=== PATIENT | male | born 1945 | race Caucasian/White ===

== ENCOUNTER 2017-05-21 12:01 | Inpatient (IN) | payer MEDICARE, OTHER ==
[2017-05-21] MEDS ORDERED: Sodium Chloride 0.9% 2.5 ML Syringe FLUSH PRN (12:10)
[2017-05-21] MEDS ORDERED: Albuterol/Ipratropium 3.0-0.5 MG/3 ML Neb Soln NEB ONE (12:10)
[2017-05-21] MEDS ORDERED: Sodium Chloride 0.9% 10 ML Syringe FLUSH PRN (12:10)
[2017-05-21] MEDS ORDERED: methylPREDNISolone Sodium Succinate 125 MG/2 ML SDV IVPUSH ONE (12:10)
[2017-05-21] MEDS ORDERED: Sodium Chloride 0.9% 500 ML IV SCH (12:15)
--- NOTE | 2017-05-21 12:16 | EDM.PDOC ---
ED HPI GENERAL MEDICAL PROBLEM - General Chief Complaint: Respiratory Problem Stated Complaint: LOW OXYGEN Time Seen by Provider: 05/21/17 12:09 - History of Present Illness INITIAL COMMENTS - FREE TEXT/NARRATIVE: HISTORY AND PHYSICAL: History of present illness: Patient is a 71-year-old male follows with a physician in [facility] and presents with progressive shortness of breath over the last few weeks. Patient said that his provider was concerned he might have a pneumonia and he did go and get an outpatient chest x-ray earlier today. Patient presents to our ER saying that he is more short of breath and wanted evaluation. Patient denies any cardiac history but does have a long-standing history of COPD and he admits that he has been smoking over the last 2 or more weeks. Patient uses a nebulizer and inhaler at home and is on chronic oxygen and he has increased it a little over the last few weeks. He also has a history of right-sided lung cancer for which she underwent radiation therapy and he is in remission. He denies any resection of the lung on the right. Patient also has hypertension and hypercholesterolemia and has a pacemaker for sick sinus syndrome/ tachybradycardia syndrome. Patient tells me has oxygen saturation at home is normally 88% which is good for him. Patient says he has not been having a cough productive of phlegm and he has had no fevers chills chest pain abdominal pain nausea vomiting or diarrhea. When asked why his provider thought he had pneumonia the patient is unsure. He says he did not have any typical symptoms of pneumonia such as the cough and the fever. We were called to help the patient out of the car when he arrived and his O2 sat on room air was 60% and he felt short of breath. He is currently on a simple mask and satting 93% and is feeling better already. He is talking freely and easily without breathlessness and in fact he was talking on the cell phone intermittently. He denies any complaints of new leg pain or swelling and says he has no history of congestive heart failure. Review of systems: As per history of present illness and below otherwise all systems reviewed and negative. Past medical history: As per history of present illness and as reviewed below otherwise noncontributory. Surgical history: As per history of present illness and as reviewed below otherwise noncontributory. Social history: No reported history of drug or alcohol abuse. Family history: As per history of present illness and as reviewed below otherwise noncontributory. Physical exam: Gen.: Well-developed overweight man who is nontoxic and speaking clearly and easily in the ED without breathlessness. He moves easily in the ED. HEENT: Atraumatic, normocephalic, pupils reactive, negative for conjunctival pallor or scleral icterus, mucous membranes moist, throat clear, neck supple, nontender, trachea midline. Lungs: Diminished breath sounds throughout all chang with minimal auscultation of breath sounds and some scattered fine expiratory wheezing, there is some abdominal work of breathing but no intercostal muscle use or supraclavicular use , there is no stridor, breath sounds equal bilaterally, chest nontender. Heart: S1S2, regular rate and rhythm no overt murmurs Abdomen: Soft, nondistended, nontender. The abdomen is very large and there is some tympany on percussion in the upper part and bowel sounds are hypoactive. Negative for masses or hepatosplenomegaly. Negative for costovertebral tenderness. Pelvis: Stable nontender. Genitourinary: Deferred. Rectal: Deferred. Extremities: Atraumatic, negative for cords or calf pain. Neurovascular unremarkable. There is trace pedal edema bilaterally but no leg asymmetry and no calf tenderness Neuro: Awake, alert, oriented. Cranial nerves II through XII unremarkable. Cerebellum unremarkable. Motor and sensory unremarkable throughout. Exam nonfocal. Skin: There is no diaphoresis, turgor is normal, there are no rashes or lesions that look acute Diagnostics: EKG CBC CMP BNP lactic acid blood cultures if indicated troponin chest x-ray Therapeutics: IV O2 monitor IV fluids duo neb Solu-Medrol Zithromax 1313: Case was discussed with our hospitalist Dr. Troy who would like me to give a dose of Zithromax and agrees with inpatient admission. Patient also was aware of all testing results and agrees that he needs to be in the hospital as he is definitely more short of breath than his usual. Dr. Troy would not like blood cultures sent with the antibiotics. Impression: COPD exacerbation/bronchitis/mild hypoxia Definitive disposition and diagnosis as appropriate pending reevaluation and review of above. - Related Data Allergies Allergy/AdvReac Type Severity Reaction Status Date / Time ciprofloxacin [From Cipro] Allergy Rash Verified 05/21/17 12:08 ciprofloxacin HCl Allergy Rash Verified 05/21/17 12:08 [From Cipro] doxazosin Allergy Rash Verified 05/21/17 12:08 doxycycline Allergy Rash Verified 05/21/17 12:08 dutasteride [From Pepper] Allergy Rash Verified 05/21/17 12:08 Sulfa (Sulfonamide Allergy Rash Verified 05/21/17 12:08 Antibiotics) tamsulosin HCl [From Pepper] Allergy Rash Verified 05/21/17 12:08 Home Meds: Home Meds Folic Acid 3 mg PO DAILY 01/05/14 [History] Simvastatin [Zocor] 40 mg PO BEDTIME 01/05/14 [History] Aspirin [Adult Low Dose Aspirin EC] 81 mg PO DAILY 02/15/15 [History] Famotidine 20 mg PO DAILY 02/15/15 [History] Gabapentin [Neurontin] 600 mg PO TID 02/15/15 [History] Losartan [Cozaar] 100 mg PO DAILY 02/15/15 [History] metFORMIN HCl [Metformin HCl] 500 mg PO DAILY 02/15/15 [History] rOPINIRole [Requip] 1 mg PO DAILY 04/03/15 [History] rOPINIRole HCl [Requip] 2 tab PO BEDTIME 04/29/15 [History] Albuterol Sulfate [Proair Respiclick] 2 puff INH Q4HR PRN 02/01/16 [History] Albuterol [Proventil Neb Soln] 2.5 mg NEB Q6HR PRN 02/01/16 [History] Calcium Carbonate/Vitamin D3 [Calcium 600 + Vit D Tablet] 1 each PO DAILY [History] Hydroxychloroquine [Plaquenil] 200 mg PO BID 02/01/16 [History] Ketoconazole [Nizoral 2% Crm] 1 applic TOP DAILY 02/01/16 [History] Metoprolol Succinate [Toprol XL 100mg] 100 mg PO DAILY 02/01/16 [History] Mometasone/Formoterol [Dulera 200-5 MCG] 2 puff INH BID 02/01/16 [History] Multivitamin [Multivitamins] 1 cap PO DAILY 02/01/16 [History] Roflumilast [Daliresp] 500 mcg PO DAILY 02/01/16 [History] Tiotropium [place] [Spiriva Respimat] 2.5 mcg IH DAILY 02/01/16 [History] metroNIDAZOLE/Skin Cleansr #23 [[place] 0.75% Cream] 1 applic TOP BID 02/01/16 [ History] rOPINIRole [Requip] 1 mg PO PCLUNCH PRN 02/01/16 [History] Amoxicillin/Clavulanate K [Augmentin 875 MG/125 MG] 1 tab PO Q12HR #10 tablet [Rx] Past Medical History HEENT History: Reports: Hard of Hearing Cardiovascular History: Reports: High Cholesterol, Pacemaker, SOB on Exertion Respiratory History: Reports: COPD, SOB, Other (See Below) Other Respiratory History: lung ca Gastrointestinal History: Reports: None Genitourinary History: Reports: None, Other (See Below) Other Genitourinary History: BPH Musculoskeletal History: Reports: RA Other Musculoskeletal History: restless legs syndrome and RA Neurological History: Reports: None Psychiatric History: Reports: None Endocrine/Metabolic History: Reports: Diabetes, Type II Hematologic History: Reports: None Oncologic (Cancer) History: Reports: Lung - Infectious Disease History Infectious Disease History: Reports: None - Past Surgical History HEENT Surgical History: Reports: None Cardiovascular Surgical History: Reports: Pacer Social & Family History - Family History Family Medical History: Noncontributory - Tobacco Use Smoking Status *Q: Former Smoker Years of Tobacco use: 54 Used Tobacco, but Quit: Yes Month Tobacco Last Used: 7 years Second Hand Smoke Exposure: No - Alcohol Use Days Per Week of Alcohol Use: 3 Number of Drinks Per Day: 2 Total Drinks Per Week: 6 - Recreational Drug Use Recreational Drug Use: No ED ROS GENERAL - Review of Systems Review Of Systems: ROS reveals no pertinent complaints other than HPI. ED EXAM, GENERAL - Physical Exam Exam: See Below (See dictation) Course - Vital Signs Last Recorded V/S: Last Vital Signs Temp 36.3 C 05/21/17 12:03 Pulse 102 H 05/21/17 12:03 Resp 20 05/21/17 12:03 BP 192/89 H 05/21/17 12:03 Pulse Ox 90 L 05/21/17 12:03 - Orders/Labs/Meds Orders: Active Orders 24 hr Category Date Time Status Patient Status [ADT] Stat ADT 05/21/17 13:19 Ordered Cardiac Monitoring [RC] . DIRECTED Care 05/21/17 12:09 Active EKG Documentation Completion [RC] STAT Care 05/21/17 12:09 Active Oxygen Therapy, ED [RC] ASDIRECTED Care 05/21/17 12:09 Active Pulse Oximetry [RC] ASDIRECTED Care 05/21/17 12:09 Active RT Aerosol Therapy [RC] ASDIRECTED Care 05/21/17 12:11 Active UA W/MICROSCOPIC [URIN] Stat Lab 05/21/17 13:00 Results Azithromycin [Zithromax] 500 mg Med 05/21/17 13:20 Ordered Sodium Chloride 0.9% [Normal Saline] 250 ml IV ONETIME Sodium Chloride 0.9% [Normal Saline] 500 ml Med 05/21/17 12:15 Active IV STAT Sodium Chloride 0.9% [Saline Flush] Med 05/21/17 12:10 Active 10 ml FLUSH ASDIRECTED PRN Sodium Chloride 0.9% [Saline Flush] Med 05/21/17 12:10 Active 2.5 ml FLUSH ASDIRECTED PRN Saline Lock Insert [OM.PC] Stat Oth 05/21/17 12:09 Ordered Medication Orders Sodium Chloride (Normal Saline) 500 mls @ 999 mls/hr IV STAT [facility] Last Admin: 05/21/17 12:30 Dose: 999 mls/hr Sodium Chloride (Saline Flush) 10 ml FLUSH ASDIRECTED PRN PRN Reason: Keep Vein Open Last Admin: 05/21/17 12:31 Dose: 10 ml Sodium Chloride (Saline Flush) 2.5 ml FLUSH ASDIRECTED PRN PRN Reason: Keep Vein Open Last Admin: 05/21/17 12:31 Dose: 2.5 ml Labs: Laboratory Tests 05/21/17 05/21/17 05/21/17 Range/Units 12:20 12:20 12:20 WBC 7.94 (4.0-11.0) K/uL RBC 4.59 (4.50-5.90) M/uL Hgb 13.4 (13.0-17.0) g/dL Hct 42.8 (38.0-50.0) % MCV 93.2 (80.0-98.0) fL MCH 29.2 (27.0-32.0) pg MCHC 31.3 (31.0-37.0) g/dL RDW Std Deviation 54.2 (28.0-62.0) fl RDW Coeff of Kelse[place] 16 H (11.0-15.0) % Plt Count 276 (150-400) K/uL MPV 8.90 (7.40-12.00) fL Neut % (Auto) 69.7 (48.0-80.0) % Lymph % (Auto) 17.5 (16.0-40.0) % [place] % (Auto) 11.1 (0.0-15.0) % Eos % (Auto) 1.6 (0.0-7.0) % Baso % (Auto) 0.1 (0.0-1.5) % Neut # (Auto) 5.5 (1.4-5.7) K/uL Lymph # (Auto) 1.4 (0.6-2.4) K/uL [place] # (Auto) 0.9 H (0.0-0.8) K/uL Eos # (Auto) 0.1 (0.0-0.7) K/uL Baso # (Auto) 0.0 (0.0-0.1) K/uL Nucleated RBC % 0.0 /100WBC Nucleated RBCs # 0 K/uL Lactate 0.7 (0.20-2.00) mmol/L Sodium 142 (136-146) mmol/L Potassium 4.1 (3.5-5.1) mmol/L Chloride 102 (98-110) mmol/L Carbon Dioxide 33 H (21-31) mmol/L BUN 14 (6.0-23.0) mg/dL Creatinine 0.8 (0.6-1.5) mg/dL Est Cr Clr Drug Dosing 74.21 mL/min Estimated GFR (MDRD) > 60.0 ml/min Glucose 112 H (60-110) mg/dL Calcium 9.9 (8.8-10.8) mg/dL Total Bilirubin 0.6 (0.1-1.5) mg/dL AST 18 (5-40) IU/L ALT 15 (8-54) IU/L Alkaline Phosphatase 87 (40-150) Troponin I (0.0-0.29) NG/ML B-Natriuretic Peptide (<100) PG/ML Total Protein 7.0 (6.0-8.0) g/dL Albumin 3.8 (3.4-4.8) g/dL Globulin 3.2 (2.0-3.5) g/dL Albumin/Globulin Ratio 1.2 L (1.3-2.8) Urine Color Urine Appearance Urine pH (5.0-8.0) Ur Specific [place] (1.001-1.035) Urine Protein (NEGATIVE) mg/dL Urine Glucose (UA) (NEGATIVE) mg/dL Urine Ketones (NEGATIVE) mg/dL Urine Occult Blood (NEGATIVE) Urine Nitrite (NEGATIVE) Urine Bilirubin (NEGATIVE) Urine Urobilinogen (<2.0) EU/dL Ur Leukocyte Esterase (NEGATIVE) 05/21/17 05/21/17 05/21/17 Range/Units 12:20 12:20 13:00 WBC (4.0-11.0) K/uL RBC (4.50-5.90) M/uL Hgb (13.0-17.0) g/dL Hct (38.0-50.0) % MCV (80.0-98.0) fL MCH (27.0-32.0) pg MCHC (31.0-37.0) g/dL RDW Std Deviation (28.0-62.0) fl RDW Coeff of [place] (11.0-15.0) % Plt Count (150-400) K/uL MPV (7.40-12.00) fL Neut % (Auto) (48.0-80.0) % Lymph % (Auto) (16.0-40.0) % [place] % (Auto) (0.0-15.0) % Eos % (Auto) (0.0-7.0) % Baso % (Auto) (0.0-1.5) % Neut # (Auto) (1.4-5.7) K/uL Lymph # (Auto) (0.6-2.4) K/uL [place] # (Auto) (0.0-0.8) K/uL Eos # (Auto) (0.0-0.7) K/uL Baso # (Auto) (0.0-0.1) K/uL Nucleated RBC % /100WBC Nucleated RBCs # K/uL Lactate (0.20-2.00) mmol/L Sodium (136-146) mmol/L Potassium (3.5-5.1) mmol/L Chloride (98-110) mmol/L Carbon Dioxide (21-31) mmol/L BUN (6.0-23.0) mg/dL Creatinine (0.6-1.5) mg/dL Est Cr Clr Drug Dosing mL/min Estimated GFR (MDRD) ml/min Glucose (60-110) mg/dL Calcium (8.8-10.8) mg/dL Total Bilirubin (0.1-1.5) mg/dL AST (5-40) IU/L ALT (8-54) IU/L Alkaline Phosphatase (40-150) Troponin I < 0.10 (0.0-0.29) NG/ML B-Natriuretic Peptide 50 (<100) PG/ML Total Protein (6.0-8.0) g/dL Albumin (3.4-4.8) g/dL Globulin (2.0-3.5) g/dL Albumin/Globulin Ratio (1.3-2.8) Urine Color YELLOW Urine Appearance CLEAR Urine pH 6.0 (5.0-8.0) Ur Specific [place] 1.025 (1.001-1.035) Urine Protein TRACE (NEGATIVE) mg/dL Urine Glucose (UA) NEGATIVE (NEGATIVE) mg/dL Urine Ketones NEGATIVE (NEGATIVE) mg/dL Urine Occult Blood NEGATIVE (NEGATIVE) Urine Nitrite NEGATIVE (NEGATIVE) Urine Bilirubin NEGATIVE (NEGATIVE) Urine Urobilinogen 1.0 (<2.0) EU/dL Ur Leukocyte Esterase SMALL (NEGATIVE) Meds: Medications Generic Name Dose Route Start Last Admin Trade Name Freq PRN Reason Stop Dose Admin Sodium Chloride 500 mls @ 999 mls/hr 05/21/17 12:15 05/21/17 12:30 Normal Saline IV 999 mls/hr STAT AXEL Administration Sodium Chloride 10 ml 05/21/17 12:10 05/21/17 12:31 Saline Flush FLUSH 10 ml ASDIRECTED PRN Administration Keep Vein Open Sodium Chloride 2.5 ml 05/21/17 12:10 05/21/17 12:31 Saline Flush FLUSH 2.5 ml ASDIRECTED PRN Administration Keep Vein Open Discontinued Medications Generic Name Dose Route Start Last Admin Trade Name Freq PRN Reason Stop Dose Admin Albuterol/Ipratropium 3 ml 05/21/17 12:10 05/21/17 12:16 Duoneb 3.0-0.5 Mg/3 Ml NEB 05/21/17 12:11 3 ml ONETIME ONE Administration Methylprednisolone Sodium Succinate 125 mg 05/21/17 12:10 05/21/17 12:31 Solu-Medrol IVPUSH 05/21/17 12:11 125 mg ONETIME ONE Administration Departure - Departure Time of Disposition: 13:22 Disposition: Admitted As Inpatient 64 Condition: Good, Fair Clinical Impression: COPD with acute exacerbation, Hypoxia - Discharge Information Forms: ED Department Discharge - My Orders Last 24 Hours: My Active Orders 05/21/17 12:09 Cardiac Monitoring [RC] . DIRECTED EKG Documentation Completion [RC] STAT Oxygen Therapy, ED [RC] ASDIRECTED Pulse Oximetry [RC] ASDIRECTED Saline Lock Insert [OM.PC] Stat 05/21/17 12:10 Sodium Chloride 0.9% [Saline Flush] 10 ml FLUSH ASDIRECTED PRN Sodium Chloride 0.9% [Saline Flush] 2.5 ml FLUSH ASDIRECTED PRN 05/21/17 12:11 RT Aerosol Therapy [RC] ASDIRECTED 05/21/17 12:15 Sodium Chloride 0.9% [Normal Saline] 500 ml IV STAT 05/21/17 13:00 UA W/MICROSCOPIC [URIN] Stat 05/21/17 13:19 Patient Status [ADT] Stat 05/21/17 13:20 Azithromycin [Zithromax] 500 mg Sodium Chloride 0.9% [Normal Saline] 250 ml IV ONETIME - Assessment/Plan Last 24 Hours: My Active Orders 05/21/17 12:09 Cardiac Monitoring [RC] . DIRECTED EKG Documentation Completion [RC] STAT Oxygen Therapy, ED [RC] ASDIRECTED Pulse Oximetry [RC] ASDIRECTED Saline Lock Insert [OM.PC] Stat 05/21/17 12:10 Sodium Chloride 0.9% [Saline Flush] 10 ml FLUSH ASDIRECTED PRN Sodium Chloride 0.9% [Saline Flush] 2.5 ml FLUSH ASDIRECTED PRN 05/21/17 12:11 RT Aerosol Therapy [RC] ASDIRECTED 05/21/17 12:15 Sodium Chloride 0.9% [Normal Saline] 500 ml IV STAT 05/21/17 13:00 UA W/MICROSCOPIC [URIN] Stat 05/21/17 13:19 Patient Status [ADT] Stat 05/21/17 13:20 Azithromycin [Zithromax] 500 mg Sodium Chloride 0.9% [Normal Saline] 250 ml IV ONETIME
[2017-05-21 12:54] LABS: CHLORIDE,CL 102 mmol/L (98-110); SODIUM,NA 142 mmol/L (136-146)
--- NOTE | 2017-05-21 13:10 | CR ---
EXAMINATION: Two-view chest (PA and Lateral views). HISTORY: Shortness of breath. FINDINGS: The trachea is midline. The cardiomediastinal silhouette is stable. There is stable right apical scar ring noted and bibasilar interstitial prominence. No definite pleural effusion or pneumothorax. There is a left-sided pacemaker noted. There is likely a 2 cm nodule projecting over the posterior chest o n the noted on the lateral view. Osseous structures appear unremarkable. IMPRESSION: 1. No acute cardiopulmonary process. 2. Indeterminate 2 cm nodular area projecting over the posterior chest on the lateral view.
[2017-05-21] MEDS ORDERED: Azithromycin 500 MG in Sodium Chloride 0.9% 250 ML IV ONE (13:20)
[2017-05-21] MEDS ORDERED: Sodium Chloride 0.9% 1,000 ML IV ONE (13:22)
[2017-05-21] MEDS ORDERED: Ondansetron 4 MG/2 ML SDV IVPUSH PRN (14:10)
[2017-05-21] MEDS ORDERED: Acetaminophen 325 MG Tab PO PRN (14:10)
[2017-05-21] MEDS ORDERED: Albuterol 0.083% 2.5 MG/3 ML Neb Soln NEB PRN (14:10)
[2017-05-21] MEDS: Enoxaparin 40 MG/0.4 ML Syringe SUBCUT SCH (14:57)
[2017-05-21] MEDS: cefTRIAXone 1 GM in Premix Bag 1 BAG IV SCH (15:07)
--- NOTE | 2017-05-21 15:09 | PCM.HP ---
H&P History of Present Illness - General Date of Service: 05/21/17 Admit Problem/Dx: Admission Diagnosis/Problem Admission Diagnosis/Problem COPD, Moderate chronic obstructive pulmonary disease Source of Information: Patient History Limitations: Reports: No Limitations - History of Present Illness Initial Comments - Free Text/Narative: This 71 year old male with complex medical history, including severe oxygen dependent COPD, CAD, hx lung cancer, chronic hypoxemic respiratory failure, CHF , DM type 2, and MICHAEL presented to the ED with concerns of worsening SOB. He reports he saw his provider in [place] due to this, they took an Xray but doesn't know what they saw. He came to [place] to refill his oxygen tanks and once he did that at [facility], he felt so dyspneic, lightheaded, and dizzy he came to the ED. He denies fevers, or chills, no chest pain or palpitations. He denies cough or hemoptysis. He denies black or bloody BMs, he reports burning with urination, no testicular pain or penile drainage. He reports having RUQ pain and was diagnosed with cholethiasis and was being worked up for cholecystectomy in [place]. He was recently seen by Marlen Bobo, FLOAT TENDER in Pulmonology and Dr. Paul, who urged him to stop smoking and to be complaint with medications, including inhalers. He had recently started smoking again and attributes worsening respiratory function to this. He moved to [place] 1 year ago due to increasing rent prices. He feels very lonely and depressed, he has no help at home and is wanting to transition to a halfway. He feels as though he can not take care of himself. He is unable to ambulate very far, 100 ft, without being very short of breath. He reports son lives in [place], and he is helping him get things ready to move. PCP, Shelly Kohler in [place]. He does report wanting to find a provider in [place] since he is going to be moving here soon. - Related Data Allergies/Adverse Reactions: Allergies Allergy/AdvReac Type Severity Reaction Status Date / Time ciprofloxacin [From Cipro] Allergy Rash Verified 05/21/17 12:08 ciprofloxacin HCl Allergy Rash Verified 05/21/17 12:08 [From Cipro] doxazosin Allergy Rash Verified 05/21/17 12:08 doxycycline Allergy Rash Verified 05/21/17 12:08 dutasteride [From Pepper] Allergy Rash Verified 05/21/17 12:08 Sulfa (Sulfonamide Allergy Rash Verified 05/21/17 12:08 Antibiotics) tamsulosin HCl [From Pepper] Allergy Rash Verified 05/21/17 12:08 Home Medications: Home Meds Folic Acid 3 mg PO DAILY 01/05/14 [History] Simvastatin [Zocor] 40 mg PO BEDTIME 01/05/14 [History] Aspirin [Adult Low Dose Aspirin EC] 81 mg PO DAILY 02/15/15 [History] Famotidine 20 mg PO DAILY 02/15/15 [History] Gabapentin [Neurontin] 600 mg PO TID 02/15/15 [History] Losartan [Cozaar] 100 mg PO DAILY 02/15/15 [History] metFORMIN HCl [Metformin HCl] 500 mg PO DAILY 02/15/15 [History] rOPINIRole [Requip] 1 mg PO DAILY 04/03/15 [History] rOPINIRole HCl [Requip] 2 tab PO BEDTIME 04/29/15 [History] Albuterol Sulfate [Proair Respiclick] 2 puff INH Q4HR PRN 02/01/16 [History] Albuterol [Proventil Neb Soln] 2.5 mg NEB Q6HR PRN 02/01/16 [History] Calcium Carbonate/Vitamin D3 [Calcium 600 + Vit D Tablet] 1 each PO DAILY [History] Hydroxychloroquine [Plaquenil] 200 mg PO BID 02/01/16 [History] Ketoconazole [Nizoral 2% Crm] 1 applic TOP DAILY 02/01/16 [History] Metoprolol Succinate [Toprol XL 100mg] 100 mg PO DAILY 02/01/16 [History] Mometasone/Formoterol [Dulera 200-5 MCG] 2 puff INH BID 02/01/16 [History] Multivitamin [Multivitamins] 1 cap PO DAILY 02/01/16 [History] Roflumilast [Daliresp] 500 mcg PO DAILY 02/01/16 [History] Tiotropium Rattan [Spiriva Respimat] 2.5 mcg IH DAILY 02/01/16 [History] metroNIDAZOLE/Skin Cleansr #23 [Rosadan 0.75% Cream] 1 applic TOP BID 02/01/16 [ History] rOPINIRole [Requip] 1 mg PO PCLUNCH PRN 02/01/16 [History] Amoxicillin/Clavulanate K [Augmentin 875 MG/125 MG] 1 tab PO Q12HR #10 tablet [Rx] Past Medical History HEENT History: Reports: Hard of Hearing Cardiovascular History: Reports: CAD, High Cholesterol, Hypertension, Pacemaker , SOB on Exertion Respiratory History: Reports: COPD (oxygen dependent), Sleep Apnea, SOB, Other ( See Below) Other Respiratory History: lung ca Gastrointestinal History: Reports: Cholelithiasis (diagnosed). Denies: GERD Genitourinary History: Reports: BPH, Chronic Renal Insuffiency Musculoskeletal History: Reports: RA Other Musculoskeletal History: restless legs syndrome Neurological History: Reports: None Psychiatric History: Reports: Depression Endocrine/Metabolic History: Reports: Diabetes, Type II, Obesity/BMI 30+. Denies: Hypothyroidism Hematologic History: Reports: None Oncologic (Cancer) History: Reports: Lung - Infectious Disease History Infectious Disease History: Reports: None - Past Surgical History HEENT Surgical History: Reports: None Cardiovascular Surgical History: Reports: Pacer Social & Family History - Family History Family Medical History: Noncontributory - Tobacco Use Smoking Status *Q: Former Smoker Years of Tobacco use: 54 Packs/Tins Daily: 0.5 Used Tobacco, but Quit: Yes Month Tobacco Last Used: 1 month ago Second Hand Smoke Exposure: No - Caffeine Use Caffeine Use: Reports: Coffee - Alcohol Use Days Per Week of Alcohol Use: 3 Number of Drinks Per Day: 2 Total Drinks Per Week: 6 - Recreational Drug Use Recreational Drug Use: No - Living Situation & Occupation Living situation: Reports: Alone Occupation: Retired H&P Review of Systems - Review of Systems: Review Of Systems: See Below General: Reports: Fatigue, Weight Gain. Denies: Fever, Chills HEENT: Reports: No Symptoms. Denies: Ear Pain, Headaches, Sinus Congestion, Sore Throat, Visual Changes Pulmonary: Reports: Shortness of Breath. Denies: Cough, Sputum, Hemoptysis Cardiovascular: Reports: Dyspnea on Exertion. Denies: Chest Pain, Edema, Syncope Gastrointestinal: Reports: Abdominal Pain (RUQ pain, intermittent, dx with cholelithasis recently). Denies: Black Stool, Bloody Stool, Hematemesis, Melena , Nausea, Vomiting Genitourinary: Reports: Dysuria, Burning. Denies: Retention, Flank Pain Musculoskeletal: Reports: No Symptoms. Denies: Neck Pain Skin: Reports: No Symptoms Psychiatric: Reports: No Symptoms Neurological: Reports: No Symptoms Hematologic/Lymphatic: Reports: No Symptoms Immunologic: Reports: No Symptoms Exam - Exam Exam: See Below - Vital Signs Vital Signs: Last Vital Signs Temp 97.4 F 05/21/17 12:03 Pulse 93 05/21/17 13:41 Resp 20 05/21/17 12:03 BP 156/75 H 05/21/17 13:41 Pulse Ox 93 L 05/21/17 13:41 Weight: 129.274 kg - Exam Quality Assessment: Supplemental Oxygen, DVT Prophylaxis General: Alert, Oriented, Cooperative HEENT: Conjunctiva Clear, EACs Clear, EOMI, Hearing Intact, Mucosa Moist & [place] , Normal Nasal Septum, Posterior Pharynx Clear Neck: Supple, Trachea Midline, Full Range of Motion Lungs: Clear to Auscultation, Normal Respiratory Effort Cardiovascular: Regular Rate, Regular Rhythm. No: Normal S1, Normal S2, Systolic Murmur GI/Abdominal Exam: Normal Bowel Sounds, Soft, Non-Tender, No Organomegaly, No Distention, No Abnormal Bruit, No Mass, Pelvis Stable Extremities: Normal Inspection, Normal Range of Motion, Non-Tender, Normal Capillary Refill, Pedal Edema (trace to +1 ) Neuro Extensive - Mental Status: Alert, Oriented x3, Normal Mood/Affect, Normal Cognition Psychiatric: Alert, Depressed - Patient Data Result Diagrams: 05/21/17 12:20 05/21/17 12:20 *Q Meaningful Use (ADM) - VTE *Q VTE Criteria *Q: - VTE Risk Assess *Q Each Risk Factor Represents 1 Point: Swollen Legs, Current, Serious Lung Disease Including Pneumonia, Less than 1 Month, Abnormal Pulmonary Function ( COPD) Total Score 1 Point Risk Factors: 3 Each Risk Factor Represents 2 Points: Age 60 - 74 Years, Morbid Obesity (BMI Greater than 40) Total Score 2 Point Risk Factors: 4 Each Risk Factor Represents 3 Points: None Total Score 3 Point Risk Factors: 0 Each Risk Factor Represents 5 Points: None Total Score 5 Point Risk Factors: 0 Venous Thromboembolism Risk Factor Score *Q: 7 - Stroke *Q Stroke Criteria *Q: - AMI *Q AMI Criteria *Q: - Problem List (1) COPD with acute exacerbation SNOMED Code(s): 038962845 ICD Code: J44.1 - CHRONIC OBSTRUCTIVE PULMONARY DISEASE W (ACUTE) EXACERBATION Status: Acute Current Visit: Yes (2) Hypoxia SNOMED Code(s): 406711391, 673988617 ICD Code: R09.02 - HYPOXEMIA Status: Acute Current Visit: Yes (3) Chronic hypoxemic respiratory failure SNOMED Code(s): 844782321 ICD Code: J96.11 - CHRONIC RESPIRATORY FAILURE WITH HYPOXIA Status: Chronic Current Visit: Yes (4) UTI (urinary tract infection) SNOMED Code(s): 79475297 ICD Code: N39.0 - URINARY TRACT INFECTION, SITE NOT SPECIFIED Status: Acute Current Visit: Yes Qualifiers: Urinary tract infection type: acute cystitis Hematuria presence: without hematuria Qualified Code(s): N30.00 - Acute cystitis without hematuria (5) Obesity, morbid, BMI 40.0-49.9 SNOMED Code(s): 824967415, 590230290 ICD Code: E66.01 - MORBID (SEVERE) OBESITY DUE TO EXCESS CALORIES Status: Chronic Current Visit: Yes (6) CHF (congestive heart failure) SNOMED Code(s): 36111052 ICD Code: I50.9 - HEART FAILURE, UNSPECIFIED Status: Chronic Current Visit: Yes Qualifiers: Congestive heart failure type: diastolic Congestive heart failure chronicity: chronic Qualified Code(s): I50.32 - Chronic diastolic (congestive ) heart failure (7) BPH (benign prostatic hyperplasia) SNOMED Code(s): 723469914, 565891136 ICD Code: N40.0 - BENIGN PROSTATIC HYPERPLASIA WITHOUT LOWER URINRY TRACT SYMP Status: Chronic Current Visit: Yes Qualifiers: Lower urinary tract symptom presence: symptoms absent Qualified Code(s): N40.0 - Benign prostatic hyperplasia without lower urinary tract symptoms (8) HTN (hypertension) SNOMED Code(s): 62108103 ICD Code: I10 - ESSENTIAL (PRIMARY) HYPERTENSION Status: Chronic Current Visit: Yes Qualifiers: Hypertension type: essential hypertension Qualified Code(s): I10 - Essential (primary) hypertension (9) CAD (coronary artery disease) SNOMED Code(s): 31015694 ICD Code: I25.10 - ATHSCL HEART DISEASE OF [place] CORONARY ARTERY W/O ANG PCTRS Status: Chronic Current Visit: Yes Qualifiers: Coronary Disease-Associated Artery/Lesion type: [place] artery [place] vs. transplanted heart: [place] heart Associated angina: without angina Qualified Code(s): I25.10 - Atherosclerotic heart disease of [place] coronary artery without angina pectoris (10) Depression SNOMED Code(s): 77680638 ICD Code: F32.9 - MAJOR DEPRESSIVE DISORDER, SINGLE EPISODE, UNSPECIFIED Status: Chronic Current Visit: Yes Qualifiers: Depression Type: major depressive disorder Major depression recurrence: single episode Active/Remission status: currently active Major depression episode severity: mild Qualified Code(s): F32.0 - Major depressive disorder, single episode, mild (11) MICHAEL (obstructive sleep apnea) SNOMED Code(s): 86017776 ICD Code: G47.33 - OBSTRUCTIVE SLEEP APNEA (ADULT) (PEDIATRIC) Status: Chronic Current Visit: Yes (12) Diabetes type 2, controlled SNOMED Code(s): 19660504 ICD Code: E11.9 - TYPE 2 DIABETES MELLITUS WITHOUT COMPLICATIONS Status: Chronic Priority: Medium Current Visit: No Qualifiers: Diabetes mellitus complication status: with neurologic complications Diabetes mellitus complication detail: with unspecified neuropathy Diabetes mellitus skilled nursing insulin use: without skilled nursing use Qualified Code(s): E11.40 - Type 2 diabetes mellitus with diabetic neuropathy, unspecified (13) History of lung cancer SNOMED Code(s): 996396481, 079657677 ICD Code: Z85.118 - PERSONAL HISTORY OF MALIGNANT NEOPLASM OF [place] AND LUNG Status: Chronic Current Visit: No Problem List Initiated/Reviewed/Updated: Yes Orders Last 24hrs: Active Orders 24 hr Category Date Time Status Blood Glucose Check, Bedside [RC] TIDAC Care 05/21/17 14:16 Active Communication Order [RC] PRN Care 05/21/17 14:10 Active Height and Weight [RC] DAILY Care 05/21/17 14:10 Active Intake and Output [RC] QSHIFT Care 05/21/17 14:11 Active Oxygen Therapy [RC] PRN Care 05/21/17 14:10 Active RT Aerosol Therapy [RC] ASDIRECTED Care 05/21/17 14:13 Active Up ad Cathy [RC] ASDIRECTED Care 05/21/17 14:10 Active VTE/DVT Education [RC] PER UNIT ROUTINE Care 05/21/17 14:10 Active Vital Signs [RC] Q4H Care 05/21/17 14:10 Active Consult to Case Management [CONS] Routine Cons 05/21/17 14:57 Ordered Heart Healthy Diet [DIET] Diet 05/21/17 Dinner Active BASIC METABOLIC PANEL,BMP [CHEM] AM Lab 05/22/17 05:11 Ordered CBC WITH AUTO DIFF [HEME] AM Lab 05/22/17 05:11 Ordered CULTURE URINE [RM] Routine Lab 05/21/17 14:45 Ordered Acetaminophen [Tylenol] Med 05/21/17 14:10 Active 650 mg PO Q4H PRN Albuterol [Proventil Neb Soln] Med 05/21/17 14:10 Active 2.5 mg NEB Q2H PRN Albuterol/Ipratropium [DuoNeb 3.0-0.5 MG/3 ML] Med 05/21/17 18:00 Active 3 ml NEB Q4HRRT Azithromycin [Zithromax] Med 05/22/17 09:00 Active 500 mg PO Q24H Enoxaparin [Lovenox] Med 05/21/17 14:15 Active 40 mg SUBCUT DAILY Insulin Aspart [NovoLOG] Med 05/21/17 17:00 Active See Protocol SUBCUT TIDAC Ondansetron [Zofran] Med 05/21/17 14:10 Active 4 mg IVPUSH Q4H PRN cefTRIAXone [Rocephin in Dextrose,Iso-Osm 1 GM/50 ML] 1 Med 05/21/17 15:00 Active gm Premix Bag 1 bag IV Q24H methylPREDNISolone Sod Succ [Solu-MEDROL] Med 05/21/17 18:00 Active 125 mg IVPUSH Q6H Medication Orders Acetaminophen (Tylenol) 650 mg PO Q4H PRN PRN Reason: Pain Albuterol (Proventil Neb Soln) 2.5 mg NEB Q2H PRN PRN Reason: Shortness Of Breath/wheezing Albuterol/Ipratropium (Duoneb 3.0-0.5 Mg/3 Ml) 3 ml NEB Q4HRRT AXEL Azithromycin (Zithromax) 500 mg PO Q24H AXEL Enoxaparin Sodium (Lovenox) 40 mg SUBCUT DAILY AXEL Last Admin: 05/21/17 14:57 Dose: 40 mg Ceftriaxone Sodium/Dextrose 1 (gm/ Premix) 50 mls @ 100 mls/hr IV Q24H [facility] Insulin Aspart (Novolog) 0 unit SUBCUT TIDAC AXEL PRN Reason: Protocol Methylprednisolone Sodium Succinate (Solu-Medrol) 125 mg IVPUSH Q6H AXEL Ondansetron HCl (Zofran) 4 mg IVPUSH Q4H PRN PRN Reason: Pain Sodium Chloride (Saline Flush) 10 ml FLUSH ASDIRECTED PRN PRN Reason: Keep Vein Open Last Admin: 05/21/17 12:31 Dose: 10 ml Sodium Chloride (Saline Flush) 2.5 ml FLUSH ASDIRECTED PRN PRN Reason: Keep Vein Open Last Admin: 05/21/17 12:31 Dose: 2.5 ml Assessment/Plan Comment:: This 71 year old male admitted with acute COPD exacerbation 1. Acute COPD exacerbation: Will continue home inhalers, has been non-complaint with this. Symbicort. Will add Solumedrol 125 mg every 6 hours IV. Duonebs Q4hrs and Albuterol Q2h PRN. Will add Azithromycin, possible Pneumonia. Chronic hypoxemic respiratory failure, typically on 3 L NC. Informed of increasing in nodule in L posterior chest. Will arrange follow up PCP for this. 2. UTI: Small leukocyte esterase in urine, few bacteria. Reports being diagnosed with UTI at clinic a few days ago but never picked up the prescription. Will add UC, does complain of burning and urgency. Will add Rocephin. 3. DM type 2: Novolog SSI monitor closely with steroid administration. 4. HTN: Continue Losartan and Diltiazem. Has improved with stabilization of hypoxia. 5. CHF: Continue Lasix and Metoprolol. Daily weights and strict I/O 6. CAD: Continue ASA. 7. Arthritis: Continue Tylenol and Tramadol as per home dosing VTE prophylaxis: Lovenox. Dispo: 2-4 days pending improvement. Will consult case management regarding assistance issues. May benefit from Home Health or assisted living.
[2017-05-21] MEDS: Insulin Aspart 100 Units/ML 3 ML Pen SUBCUT SCH (17:42)
[2017-05-21] MEDS: methylPREDNISolone Sodium Succinate 125 MG/2 ML SDV IVPUSH SCH ×2 (17:43→23:37)
[2017-05-21] MEDS: Albuterol/Ipratropium 3.0-0.5 MG/3 ML Neb Soln NEB SCH ×2 (19:10→22:11)
[2017-05-21] MEDS ORDERED: rOPINIRole 1 MG Tab PO PRN (19:34)
[2017-05-21] MEDS ORDERED: traMADol 50 MG Tab PO PRN (19:56)
[2017-05-21] MEDS: rOPINIRole 1 MG Tab PO SCH (20:29)
[2017-05-21] MEDS: Diltiazem IR 60 MG Tab PO SCH (20:29)
[2017-05-21] MEDS: Gabapentin 300 MG Cap PO SCH (21:00)
[2017-05-21] MEDS ORDERED: rOPINIRole 1 MG Tab PO SCH (21:00)
[2017-05-21] MEDS: traMADol 50 MG Tab PO PRN (21:48)
[2017-05-22] MEDS: Albuterol/Ipratropium 3.0-0.5 MG/3 ML Neb Soln NEB SCH ×6 (01:45→21:50)
[2017-05-22] MEDS: methylPREDNISolone Sodium Succinate 125 MG/2 ML SDV IVPUSH SCH ×2 (05:44→17:01)
[2017-05-22] MEDS: Gabapentin 300 MG Cap PO SCH ×3 (05:44→21:03)
[2017-05-22 05:51] LABS: CHLORIDE,CL 101 mmol/L (98-110); SODIUM,NA 139 mmol/L (136-146)
[2017-05-22] MEDS: Insulin Aspart 100 Units/ML 3 ML Pen SUBCUT SCH ×3 (06:45→16:59)
--- NOTE | 2017-05-22 07:54 | PCM.PN ---
- General Info Date of Service: 05/22/17 Admission Dx/Problem (Free Text): Admission Diagnosis/Problem Admission Diagnosis/Problem COPD, Moderate chronic obstructive pulmonary disease Subjective Update: Feeling a lot better this morning, I can catch my wind. Denies chest pain or worsening shortness of breath. He was standing up next to bedside table reading news paper in no acute distress. Functional Status: Reports: Pain Controlled, Tolerating Diet, Ambulating, Urinating, Incentive Spirometry - Review of Systems General: Reports: No Symptoms. Denies: Fever HEENT: Reports: No Symptoms. Denies: Contact Lenses, Sinus Congestion, Visual Changes Pulmonary: Reports: Shortness of Breath (at baseline). Denies: Cough Cardiovascular: Reports: No Symptoms. Denies: Chest Pain, Palpitations, Dyspnea on Exertion Gastrointestinal: Denies: Abdominal Pain, Nausea, Vomiting Genitourinary: Reports: No Symptoms. Denies: Dysuria, Frequency, Burning Musculoskeletal: Reports: No Symptoms Skin: Reports: No Symptoms Neurological: Reports: No Symptoms Psychiatric: Reports: No Symptoms - Patient Data Vitals - Most Recent: Last Vital Signs Temp 98.8 F 05/22/17 04:00 Pulse 98 05/22/17 04:00 Resp 20 05/22/17 04:00 BP 138/60 05/22/17 04:00 Pulse Ox 99 05/22/17 04:00 Weight - Most Recent: 129 kg I&O - Last 24 Hours: Intake & Output 05/21/17 05/22/17 05/22/17 22:59 06:59 14:59 Intake Total 390 1295 Output Total 400 875 Balance -10 420 Lab Results Last 24 Hours: Laboratory Results - last 24 hr 05/21/17 05/22/17 05/22/17 Range/Units 16:31 04:55 04:55 WBC 4.38 (4.0-11.0) K/uL RBC 4.30 L (4.50-5.90) M/uL Hgb 13.0 (13.0-17.0) g/dL Hct 39.5 (38.0-50.0) % MCV 91.9 (80.0-98.0) fL MCH 30.2 (27.0-32.0) pg MCHC 32.9 (31.0-37.0) g/dL RDW Std Deviation 52.7 (28.0-62.0) fl RDW Coeff of [place] 16 H (11.0-15.0) % Plt Count 259 (150-400) K/uL MPV 9.20 (7.40-12.00) fL Neut % (Auto) 93.9 H (48.0-80.0) % Lymph % (Auto) 5.0 L (16.0-40.0) % [place] % (Auto) 1.1 (0.0-15.0) % Eos % (Auto) 0.0 (0.0-7.0) % Baso % (Auto) 0.0 (0.0-1.5) % Neut # (Auto) 4.1 (1.4-5.7) K/uL Lymph # (Auto) 0.2 L (0.6-2.4) K/uL [place] # (Auto) 0.1 (0.0-0.8) K/uL Eos # (Auto) 0.0 (0.0-0.7) K/uL Baso # (Auto) 0.0 (0.0-0.1) K/uL Nucleated RBC % 0.0 /100WBC Nucleated RBCs # 0 K/uL Sodium 139 (136-146) mmol/L Potassium 4.0 (3.5-5.1) mmol/L Chloride 101 (98-110) mmol/L Carbon Dioxide 30 (21-31) mmol/L BUN 16 (6.0-23.0) mg/dL Creatinine 0.8 (0.6-1.5) mg/dL Est Cr Clr Drug Dosing 74.21 mL/min Estimated GFR (MDRD) > 60.0 ml/min Glucose 240 H (60-110) mg/dL POC Glucose 175 H (60-110) mg/dL Calcium 9.1 (8.8-10.8) mg/dL Med Orders - Current: Current Medications Acetaminophen (Tylenol) 650 mg PO Q4H PRN PRN Reason: Pain Albuterol (Proventil Neb Soln) 2.5 mg NEB Q2H PRN PRN Reason: Shortness Of Breath/wheezing Albuterol/Ipratropium (Duoneb 3.0-0.5 Mg/3 Ml) 3 ml NEB Q4HRRT [facility] Last Admin: 05/22/17 05:54 Dose: 3 ml Aspirin (Halfprin) 81 mg PO DAILY [facility] Azithromycin (Zithromax) 500 mg PO Q24H [facility] Diltiazem HCl (Cardizem) 60 mg PO BID [facility] Last Admin: 05/21/17 20:29 Dose: 60 mg Enoxaparin Sodium (Lovenox) 40 mg SUBCUT DAILY [facility] Last Admin: 05/21/17 14:57 Dose: 40 mg Furosemide (Lasix) 40 mg PO DAILY [facility] Gabapentin (Neurontin) 600 mg PO TID [facility] Last Admin: 05/22/17 05:44 Dose: 600 mg Ceftriaxone Sodium/Dextrose 1 (gm/ Premix) 50 mls @ 100 mls/hr IV Q24H [facility] Last Admin: 05/21/17 15:07 Dose: 100 mls/hr Insulin Aspart (Novolog) 0 unit SUBCUT TIDAC [facility] PRN Reason: Protocol Last Admin: 05/22/17 06:45 Dose: 2 units Losartan Potassium (Cozaar) 100 mg PO DAILY [facility] Methylprednisolone Sodium Succinate (Solu-Medrol) 125 mg IVPUSH Q6H [facility] Last Admin: 05/22/17 05:44 Dose: 125 mg Metoprolol Succinate (Toprol Xl) 100 mg PO DAILY [facility] Ondansetron HCl (Zofran) 4 mg IVPUSH Q4H PRN PRN Reason: Pain Ropinirole HCl (Requip) 1 mg PO DAILY [facility] Ropinirole HCl (Requip) 1 mg PO PCLUNCH [facility] Ropinirole HCl (Requip) 2 mg PO BEDTIME [facility] Last Admin: 05/21/17 20:29 Dose: 2 mg Sodium Chloride (Saline Flush) 10 ml FLUSH ASDIRECTED PRN PRN Reason: Keep Vein Open Last Admin: 05/21/17 12:31 Dose: 10 ml Sodium Chloride (Saline Flush) 2.5 ml FLUSH ASDIRECTED PRN PRN Reason: Keep Vein Open Last Admin: 05/21/17 12:31 Dose: 2.5 ml Tramadol HCl (Ultram) 50 - 100 mg PO Q6H PRN PRN Reason: Pain Last Admin: 05/21/17 21:48 Dose: 100 mg Discontinued Medications Albuterol/Ipratropium (Duoneb 3.0-0.5 Mg/3 Ml) 3 ml NEB ONETIME ONE Stop: 05/21/17 12:11 Last Admin: 05/21/17 12:16 Dose: 3 ml Sodium Chloride (Normal Saline) 500 mls @ 999 mls/hr IV STAT [facility] Last Admin: 05/21/17 12:30 Dose: 999 mls/hr Azithromycin 500 mg/ Sodium (Chloride) 250 mls @ 250 mls/hr IV ONETIME ONE Stop: 05/21/17 14:19 Last Admin: 05/21/17 13:27 Dose: 250 mls/hr Sodium Chloride (Normal Saline) 1,000 mls @ 60 mls/hr IV .Bolus ONE Stop: 05/22/17 06:01 Last Admin: 05/21/17 13:24 Dose: 60 mls/hr Methylprednisolone Sodium Succinate (Solu-Medrol) 125 mg IVPUSH ONETIME ONE Stop: 05/21/17 12:11 Last Admin: 05/21/17 12:31 Dose: 125 mg Ropinirole HCl (Requip) 1 mg PO PCLUNCH PRN PRN Reason: Other Ropinirole HCl (Requip) mg PO BEDTIME [facility] Tramadol HCl (Ultram) 50 - 100 mg PO Q6H PRN PRN Reason: Pain - Exam Quality Assessment: Supplemental Oxygen, DVT Prophylaxis General: Alert, Oriented, Cooperative, No Acute Distress Neck: Supple Lungs: Clear to Auscultation (slightly decreased but much improved from yesterday), Normal Respiratory Effort Cardiovascular: Regular Rate, Regular Rhythm, No Murmurs Back Exam: Normal Inspection, Full Range of Motion Extremities: Normal Inspection, Normal Range of Motion, Non-Tender, Normal Capillary Refill, Pedal Edema (trace) Neurological: No New Focal Deficit Psy/Mental Status: Alert, Normal Affect, Normal Mood - Problem List & Annotations (1) COPD with acute exacerbation SNOMED Code(s): 299925527 Code(s): J44.1 - CHRONIC OBSTRUCTIVE PULMONARY DISEASE W (ACUTE) EXACERBATION Status: Acute Current Visit: Yes (2) Hypoxia SNOMED Code(s): 299964663, 932794468 Code(s): R09.02 - HYPOXEMIA Status: Acute Current Visit: Yes (3) Chronic hypoxemic respiratory failure SNOMED Code(s): 448496704 Code(s): J96.11 - CHRONIC RESPIRATORY FAILURE WITH HYPOXIA Status: Chronic Current Visit: Yes (4) UTI (urinary tract infection) SNOMED Code(s): 27606598 Code(s): N39.0 - URINARY TRACT INFECTION, SITE NOT SPECIFIED Status: Acute Current Visit: Yes Qualifiers: Urinary tract infection type: acute cystitis Hematuria presence: without hematuria Qualified Code(s): N30.00 - Acute cystitis without hematuria (5) Obesity, morbid, BMI 40.0-49.9 SNOMED Code(s): 537849287, 977344771 Code(s): E66.01 - MORBID (SEVERE) OBESITY DUE TO EXCESS CALORIES Status: Chronic Current Visit: Yes (6) CHF (congestive heart failure) SNOMED Code(s): 87079414 Code(s): I50.9 - HEART FAILURE, UNSPECIFIED Status: Chronic Current Visit : Yes Qualifiers: Congestive heart failure type: diastolic Congestive heart failure chronicity: chronic Qualified Code(s): I50.32 - Chronic diastolic (congestive ) heart failure (7) BPH (benign prostatic hyperplasia) SNOMED Code(s): 021250188, 554358251 Code(s): N40.0 - BENIGN PROSTATIC HYPERPLASIA WITHOUT LOWER URINRY TRACT SYMP Status: Chronic Current Visit: Yes Qualifiers: Lower urinary tract symptom presence: symptoms absent Qualified Code(s): N40.0 - Benign prostatic hyperplasia without lower urinary tract symptoms (8) HTN (hypertension) SNOMED Code(s): 07621703 Code(s): I10 - ESSENTIAL (PRIMARY) HYPERTENSION Status: Chronic Current Visit: Yes Qualifiers: Hypertension type: essential hypertension Qualified Code(s): I10 - Essential (primary) hypertension (9) CAD (coronary artery disease) SNOMED Code(s): 57807328 Code(s): I25.10 - ATHSCL HEART DISEASE OF [place] CORONARY ARTERY W/O ANG PCTRS Status: Chronic Current Visit: Yes Qualifiers: Coronary Disease-Associated Artery/Lesion type: [place] artery [place] vs. transplanted heart: [place] heart Associated angina: without angina Qualified Code(s): I25.10 - Atherosclerotic heart disease of [place] coronary artery without angina pectoris (10) Depression SNOMED Code(s): 67172299 Code(s): F32.9 - MAJOR DEPRESSIVE DISORDER, SINGLE EPISODE, UNSPECIFIED Status: Chronic Current Visit: Yes Qualifiers: Depression Type: major depressive disorder Major depression recurrence: single episode Active/Remission status: currently active Major depression episode severity: mild Qualified Code(s): F32.0 - Major depressive disorder, single episode, mild (11) MICHAEL (obstructive sleep apnea) SNOMED Code(s): 09128790 Code(s): G47.33 - OBSTRUCTIVE SLEEP APNEA (ADULT) (PEDIATRIC) Status: Chronic Current Visit: Yes (12) Diabetes type 2, controlled SNOMED Code(s): 36222880 Code(s): E11.9 - TYPE 2 DIABETES MELLITUS WITHOUT COMPLICATIONS Status: Chronic Priority: Medium Current Visit: No Qualifiers: Diabetes mellitus complication status: with neurologic complications Diabetes mellitus complication detail: with unspecified neuropathy Diabetes mellitus long-term insulin use: without long-term use Qualified Code(s): E11.40 - Type 2 diabetes mellitus with diabetic neuropathy, unspecified (13) History of lung cancer SNOMED Code(s): 759269739, 653111995 Code(s): Z85.118 - PERSONAL HISTORY OF MALIGNANT NEOPLASM OF BRONCH[place] AND LUNG Status: Chronic Current Visit: No - Problem List Review Problem List Initiated/Reviewed/Updated: Yes - My Orders Last 24 Hours: My Active Orders 05/21/17 13:00 CULTURE URINE [RM] Routine 05/21/17 14:10 Communication Order [RC] PRN Height and Weight [RC] DAILY Oxygen Therapy [RC] PRN Up ad Cathy [RC] ASDIRECTED Vital Signs [RC] Q4H Acetaminophen [Tylenol] 650 mg PO Q4H PRN Albuterol [Proventil Neb Soln] 2.5 mg NEB Q2H PRN Ondansetron [Zofran] 4 mg IVPUSH Q4H PRN 05/21/17 14:11 Intake and Output [RC] QSHIFT 05/21/17 14:13 RT Aerosol Therapy [RC] ASDIRECTED 05/21/17 14:15 Enoxaparin [Lovenox] 40 mg SUBCUT DAILY 05/21/17 14:16 Blood Glucose Check, Bedside [RC] TIDAC 05/21/17 14:57 Consult to Case Management [CONS] Routine 05/21/17 15:00 cefTRIAXone [Rocephin in Dextrose,Iso-Osm 1 GM/50 ML] 1 gm Premix Bag 1 bag IV Q24H 05/21/17 15:31 Intake and Output Strict [RC] ASDIRECTED 05/21/17 15:48 Resuscitation Status Routine 05/21/17 17:00 Insulin Aspart [NovoLOG] See Protocol SUBCUT TIDAC 05/21/17 18:00 Albuterol/Ipratropium [DuoNeb 3.0-0.5 MG/3 ML] 3 ml NEB Q4HRRT methylPREDNISolone Sod Succ [Solu-MEDROL] 125 mg IVPUSH Q6H 05/21/17 21:00 Diltiazem [Cardizem] 60 mg PO BID 05/21/17 Dinner Heart Healthy Diet [DIET] 05/22/17 07:52 Consult to Physical Therapy [PT Evaluation and Treatment] [CONS] Routine OT Evaluation and Treatment [CONS] Routine 05/22/17 09:00 Aspirin [Halfprin] 81 mg PO DAILY Azithromycin [Zithromax] 500 mg PO Q24H Furosemide [Lasix] 40 mg PO DAILY Losartan [Cozaar] 100 mg PO DAILY Metoprolol Succinate [Toprol XL] 100 mg PO DAILY - Plan Plan:: This 71 year old male admitted with acute COPD exacerbation 1. Acute COPD exacerbation: Improving, continue home inhalers, Symbicort. Will decrease Solumedrol 125 mg to q12h. Duonebs Q4hrs and Albuterol Q2h PRN. Continue Azithromycin, covering for possible Pneumonia. Chronic hypoxemic respiratory failure, typically on 3 L NC. Informed of increasing in nodule in L posterior chest. Will arrange follow up PCP for this and Dr. Watters, radiation oncology, he has missed last 2 appointments to follow up and for PET scans 2. UTI: Improving, UC pending. Continue Rocephin. 3. DM type 2: Novolog SSI monitor closely with steroid administration. 4. HTN: Continue Losartan and Diltiazem. 5. CHF: Continue Lasix and Metoprolol. Daily weights and strict I/O 6. CAD: Continue ASA. 7. Arthritis: Continue Tylenol and Tramadol as per home dosing VTE prophylaxis: Lovenox. Dispo: 2-4 days pending improvement. Will consult case management regarding assistance issues. May benefit from Home Health or assisted living.
[2017-05-22] MEDS: Enoxaparin 40 MG/0.4 ML Syringe SUBCUT SCH (08:46)
[2017-05-22] MEDS: rOPINIRole 1 MG Tab PO SCH ×4 (08:47→21:03)
[2017-05-22] MEDS: Losartan 50 MG Tab PO SCH (08:47)
[2017-05-22] MEDS: Metoprolol Succinate 100 MG Tab.ER PO SCH (08:48)
[2017-05-22] MEDS: Diltiazem IR 60 MG Tab PO SCH (08:48)
[2017-05-22] MEDS: Aspirin 81 MG Tab.EC PO SCH (08:48)
[2017-05-22] MEDS: Azithromycin 250 MG Tab PO SCH (08:48)
[2017-05-22] MEDS: Furosemide 40 MG Tab PO SCH (08:48)
[2017-05-22] MEDS: Budesonide/Formoterol 2 PUFF INH SCH (11:36)
[2017-05-22] MEDS: cefTRIAXone 1 GM in Premix Bag 1 BAG IV SCH (14:43)
[2017-05-22] MEDS ORDERED: atorvaSTATin 40 MG Tab PO SCH (21:00)
[2017-05-22] MEDS: Diltiazem IR 30 MG Tab PO SCH (21:04)
[2017-05-22] MEDS: traMADol 50 MG Tab PO PRN (21:26)
[2017-05-23] MEDS: Albuterol/Ipratropium 3.0-0.5 MG/3 ML Neb Soln NEB SCH ×3 (02:20→10:08)
[2017-05-23] MEDS: Gabapentin 300 MG Cap PO SCH (05:45)
[2017-05-23] MEDS: methylPREDNISolone Sodium Succinate 125 MG/2 ML SDV IVPUSH SCH (05:46)
[2017-05-23 05:52] LABS: CHLORIDE,CL 100 mmol/L (98-110); SODIUM,NA 137 mmol/L (136-146)
[2017-05-23] MEDS: Insulin Aspart 100 Units/ML 3 ML Pen SUBCUT SCH ×2 (07:38→11:47)
[2017-05-23] MEDS: rOPINIRole 1 MG Tab PO SCH ×2 (08:02→11:51)
[2017-05-23] MEDS: Aspirin 81 MG Tab.EC PO SCH (08:03)
[2017-05-23] MEDS: Metoprolol Succinate 100 MG Tab.ER PO SCH (08:03)
[2017-05-23] MEDS: Azithromycin 250 MG Tab PO SCH (08:03)
[2017-05-23] MEDS: Diltiazem IR 30 MG Tab PO SCH (08:04)
[2017-05-23] MEDS: Losartan 50 MG Tab PO SCH (08:04)
[2017-05-23] MEDS: Furosemide 40 MG Tab PO SCH (08:04)
[2017-05-23] MEDS: Enoxaparin 40 MG/0.4 ML Syringe SUBCUT SCH (08:05)
[2017-05-23 08:06] VITALS: BP 133/62
[2017-05-23] MEDS: Budesonide/Formoterol 2 PUFF INH SCH (08:29)
[2017-05-23] MEDS ORDERED: Levofloxacin 500 MG Tab PO SCH (12:15)
--- NOTE | 2017-05-23 15:56 | PCM.DCSUM1 ---
Discharge Summary - Hospital Course Free Text/Narrative:: COPD exacerbation and hypoxia. Also with acute on chronic respiratory failure. - Discharge Data Discharge Date: 05/23/17 Discharge Disposition: Home, Self-Care 01 Condition: Fair - Patient Summary/Data Consults: Consultations 05/21/17 14:57 Consult to Case Management [CONS] Routine 05/22/17 07:52 Consult to Physical Therapy [PT Evaluation and Treatment] [CONS] Routine OT Evaluation and Treatment [CONS] Routine Hospital Course: The patient is a 71-year-old gentleman who had been admitted to hospitalization on May 21, 2017. The patient has a long-standing history of COPD, lung cancer with radiation therapy. The patient has been doing well throughout hospitalization. His vital signs remained stable. Patient also reports that he has sufficient oxygen for transfer home as well as follow-up appointment with specialist. The patient was also noted to be likely colonized as his urine culture came back positive for pseudomonas aeruginosa which is multidrug sensitive. The patient should follow-up with his primary care physician. By day of discharge patient had remained stable. His vital signs were good. The patient 's oxygen saturations had remained at 90% on oxygen by nasal cannula at 3 L. This is chronic for the patient. The patient's laboratory studies on day of discharge were also noted to be essentially normal. He has been discharged home to continue with his home medications as well as azithromycin and he is to take 500 mg by mouth daily. The patient also has been recommended to follow-up with a heart healthy diet as tolerated and activity as tolerated. He is to follow-up with his primary care physician and his specialists. The patient is discharged with the above recommendations. - Patient Instructions Diet: Heart Healthy Diet, Diabetic Diet Activity: As Tolerated - Discharge Plan Prescriptions/Med Rec: Azithromycin [Zithromax] 500 mg PO Q24H #14 tablet Home Medications: Home Meds Folic Acid 3 mg PO DAILY 01/05/14 [History] Aspirin [Adult Low Dose Aspirin EC] 81 mg PO DAILY 02/15/15 [History] Famotidine 20 mg PO DAILY 02/15/15 [History] Losartan [Cozaar] 100 mg PO DAILY 02/15/15 [History] Calcium Carbonate/Vitamin D3 [Calcium 600 + Vit D Tablet] 1 each PO BID [History] Hydroxychloroquine [Plaquenil] 200 mg PO BID 02/01/16 [History] Ketoconazole [Nizoral 2% Crm] 1 applic TOP DAILY 02/01/16 [History] Multivitamin [Multivitamins] 1 cap PO DAILY 02/01/16 [History] metroNIDAZOLE/Skin Cleansr #23 [[place] 0.75% Cream] 1 applic TOP BID 02/01/16 [ History] Budesonide/Formoterol [Symbicort 160-4.5 MCG] 2 puff INH BID 05/21/17 [History] Diltiazem [Cardizem] 90 mg PO BID 05/21/17 [History] Furosemide 40 mg PO DAILY 05/21/17 [History] atorvaSTATin [Lipitor] 40 mg PO BEDTIME 05/21/17 [History] Albuterol/Ipratropium [DuoNeb 3.0-0.5 MG/3 ML] 3 ml IH QID PRN 05/22/17 [History ] Ergocalciferol (Vitamin D2) [Vitamin D2] 2,000 unit PO DAILY 05/22/17 [History] Gabapentin Enacarbil [Horizant] 600 mg PO TID 05/22/17 [History] Sildenafil Citrate [Sildenafil] 25 mg PO ASDIRECTED PRN 05/22/17 [History] metFORMIN HCl [Metformin HCl ER] 500 mg PO DAILY 05/22/17 [History] Azithromycin [Zithromax] 500 mg PO Q24H #14 tablet 05/23/17 [Rx] Patient Handouts: Chronic Obstructive Pulmonary Disease Exacerbation, Easy-to- Read, Azithromycin tablets, Levofloxacin tablets Forms: ED Department Discharge Referrals: Adarsh Troy DO [Physician] - (To obtain 1 week ff-up appointment.) Long Watters MD [Physician] - 06/11/17 1:30 pm ([facility] [place]) Rolando Lunsford MD [Physician] - - Discharge Summary/Plan Comment DC Time >30 min.: Yes - General Info Date of Service: 05/23/17 Admission Dx/Problem (Free Text: Admission Diagnosis/Problem Admission Diagnosis/Problem COPD, Moderate chronic obstructive pulmonary disease Functional Status: Reports: Pain Controlled, Tolerating Diet - Review of Systems General: Reports: No Symptoms HEENT: Reports: No Symptoms Pulmonary: Reports: Shortness of Breath Cardiovascular: Reports: No Symptoms Gastrointestinal: Reports: No Symptoms Genitourinary: Reports: No Symptoms Musculoskeletal: Reports: No Symptoms Skin: Reports: No Symptoms Neurological: Reports: No Symptoms Psychiatric: Reports: No Symptoms - Patient Data Vitals - Most Recent: Last Vital Signs Temp 36.8 C 05/23/17 04:00 Pulse 102 H 05/23/17 08:03 Resp 18 05/23/17 08:00 BP 133/62 05/23/17 08:04 Pulse Ox 90 L 05/23/17 08:00 Weight - Most Recent: 131.1 kg I&O - Last 24 hours: Intake & Output 05/23/17 05/23/17 05/23/17 06:59 14:59 22:59 Intake Total 1160 Output Total 575 Balance 585 Lab Results - Last 24 hrs: Laboratory Results - last 24 hr 05/22/17 05/22/17 05/23/17 Range/Units 16:05 20:22 05:12 WBC 10.42 (4.0-11.0) K/uL RBC 4.32 L (4.50-5.90) M/uL Hgb 12.4 L (13.0-17.0) g/dL Hct 39.7 (38.0-50.0) % MCV 91.9 (80.0-98.0) fL MCH 28.7 (27.0-32.0) pg MCHC 31.2 (31.0-37.0) g/dL RDW Std Deviation 53.3 (28.0-62.0) fl RDW Coeff of [place] 16 H (11.0-15.0) % Plt Count 286 (150-400) K/uL MPV 9.10 (7.40-12.00) fL Neut % (Auto) 93.6 H (48.0-80.0) % Lymph % (Auto) 2.8 L (16.0-40.0) % [place] % (Auto) 3.6 (0.0-15.0) % Eos % (Auto) 0.0 (0.0-7.0) % Baso % (Auto) 0.0 (0.0-1.5) % Neut # (Auto) 9.8 H (1.4-5.7) K/uL Lymph # (Auto) 0.3 L (0.6-2.4) K/uL [place] # (Auto) 0.4 (0.0-0.8) K/uL Eos # (Auto) 0.0 (0.0-0.7) K/uL Baso # (Auto) 0.0 (0.0-0.1) K/uL Nucleated RBC % 0.0 /100WBC Nucleated RBCs # 0 K/uL Sodium (136-146) mmol/L Potassium (3.5-5.1) mmol/L Chloride (98-110) mmol/L Carbon Dioxide (21-31) mmol/L BUN (6.0-23.0) mg/dL Creatinine (0.6-1.5) mg/dL Est Cr Clr Drug Dosing mL/min Estimated GFR (MDRD) ml/min Glucose (60-110) mg/dL POC Glucose 198 H 176 H (60-110) mg/dL Calcium (8.8-10.8) mg/dL 05/23/17 05/23/17 05/23/17 Range/Units 05:12 06:15 11:36 WBC (4.0-11.0) K/uL RBC (4.50-5.90) M/uL Hgb (13.0-17.0) g/dL Hct (38.0-50.0) % MCV (80.0-98.0) fL MCH (27.0-32.0) pg MCHC (31.0-37.0) g/dL RDW Std Deviation (28.0-62.0) fl RDW Coeff of [place] (11.0-15.0) % Plt Count (150-400) K/uL MPV (7.40-12.00) fL Neut % (Auto) (48.0-80.0) % Lymph % (Auto) (16.0-40.0) % [place] % (Auto) (0.0-15.0) % Eos % (Auto) (0.0-7.0) % Baso % (Auto) (0.0-1.5) % Neut # (Auto) (1.4-5.7) K/uL Lymph # (Auto) (0.6-2.4) K/uL [place] # (Auto) (0.0-0.8) K/uL Eos # (Auto) (0.0-0.7) K/uL Baso # (Auto) (0.0-0.1) K/uL Nucleated RBC % /100WBC Nucleated RBCs # K/uL Sodium 137 (136-146) mmol/L Potassium 4.5 (3.5-5.1) mmol/L Chloride 100 (98-110) mmol/L Carbon Dioxide 30 (21-31) mmol/L BUN 21 (6.0-23.0) mg/dL Creatinine 0.9 (0.6-1.5) mg/dL Est Cr Clr Drug Dosing 65.97 mL/min Estimated GFR (MDRD) > 60.0 ml/min Glucose 228 H (60-110) mg/dL POC Glucose 178 H 200 H (60-110) mg/dL Calcium 9.0 (8.8-10.8) mg/dL Med Orders - Current: Current Medications Discontinued Medications Acetaminophen (Tylenol) 650 mg PO Q4H PRN PRN Reason: Pain Albuterol (Proventil Neb Soln) 2.5 mg NEB Q2H PRN PRN Reason: Shortness Of Breath/wheezing Albuterol/Ipratropium (Duoneb 3.0-0.5 Mg/3 Ml) 3 ml NEB ONETIME ONE Stop: 05/21/17 12:11 Last Admin: 05/21/17 12:16 Dose: 3 ml Albuterol/Ipratropium (Duoneb 3.0-0.5 Mg/3 Ml) 3 ml NEB Q4HRRT [facility] Last Admin: 05/23/17 10:08 Dose: 3 ml Aspirin (Halfprin) 81 mg PO DAILY [facility] Last Admin: 05/23/17 08:03 Dose: 81 mg Atorvastatin Calcium (Lipitor) 40 mg PO BEDTIME [facility] Last Admin: 05/22/17 21:05 Dose: 40 mg Azithromycin (Zithromax) 500 mg PO Q24H [facility] Last Admin: 05/23/17 08:03 Dose: 500 mg Diltiazem HCl (Cardizem) 60 mg PO BID [facility] Last Admin: 05/22/17 08:48 Dose: 60 mg Diltiazem HCl (Cardizem) 90 mg PO BID [facility] Last Admin: 05/23/17 08:04 Dose: 90 mg Enoxaparin Sodium (Lovenox) 40 mg SUBCUT DAILY [facility] Last Admin: 05/23/17 08:05 Dose: 40 mg Furosemide (Lasix) 40 mg PO DAILY [facility] Last Admin: 05/23/17 08:04 Dose: 40 mg Gabapentin (Neurontin) 600 mg PO TID [facility] Last Admin: 05/23/17 05:45 Dose: 600 mg Sodium Chloride (Normal Saline) 500 mls @ 999 mls/hr IV STAT [facility] Last Admin: 05/21/17 12:30 Dose: 999 mls/hr Azithromycin 500 mg/ Sodium (Chloride) 250 mls @ 250 mls/hr IV ONETIME ONE Stop: 05/21/17 14:19 Last Admin: 05/21/17 13:27 Dose: 250 mls/hr Sodium Chloride (Normal Saline) 1,000 mls @ 60 mls/hr IV .Bolus ONE Stop: 05/22/17 06:01 Last Admin: 05/21/17 13:24 Dose: 60 mls/hr Ceftriaxone Sodium/Dextrose 1 (gm/ Premix) 50 mls @ 100 mls/hr IV Q24H [facility] Last Admin: 05/22/17 14:43 Dose: 100 mls/hr Insulin Aspart (Novolog) 0 unit SUBCUT TIDAC [facility] PRN Reason: Protocol Last Admin: 05/23/17 11:47 Dose: 4 units Levofloxacin (Levaquin) 500 mg PO Q24H [facility] Losartan Potassium (Cozaar) 100 mg PO DAILY [facility] Last Admin: 05/23/17 08:04 Dose: 100 mg Methylprednisolone Sodium Succinate (Solu-Medrol) 125 mg IVPUSH ONETIME ONE Stop: 05/21/17 12:11 Last Admin: 05/21/17 12:31 Dose: 125 mg Methylprednisolone Sodium Succinate (Solu-Medrol) 125 mg IVPUSH Q6H [facility] Last Admin: 05/22/17 05:44 Dose: 125 mg Methylprednisolone Sodium Succinate (Solu-Medrol) 125 mg IVPUSH Q12H [facility] Last Admin: 05/23/17 05:46 Dose: 125 mg Metoprolol Succinate (Toprol Xl) 100 mg PO DAILY [facility] Last Admin: 05/23/17 08:03 Dose: 100 mg Ondansetron HCl (Zofran) 4 mg IVPUSH Q4H PRN PRN Reason: Pain Budesonide/ (Formoterol 2 Puff) 1 each INH BID [facility] Last Admin: 05/23/17 08:29 Dose: 2 each Ropinirole HCl (Requip) 1 mg PO DAILY [facility] Last Admin: 05/23/17 08:02 Dose: 1 mg Ropinirole HCl (Requip) 1 mg PO PCLUNCH PRN PRN Reason: Other Ropinirole HCl (Requip) mg PO BEDTIME AXEL Ropinirole HCl (Requip) 1 mg PO PCLUNCH [facility] Last Admin: 05/23/17 11:51 Dose: 1 mg Ropinirole HCl (Requip) 2 mg PO BEDTIME [facility] Last Admin: 05/22/17 21:03 Dose: 2 mg Ropinirole HCl (Requip) 1 mg PO DAILY@0800 AXEL Ropinirole HCl (Requip) 2 mg PO DAILY@2000 [facility] Sodium Chloride (Saline Flush) 10 ml FLUSH ASDIRECTED PRN PRN Reason: Keep Vein Open Last Admin: 05/21/17 12:31 Dose: 10 ml Sodium Chloride (Saline Flush) 2.5 ml FLUSH ASDIRECTED PRN PRN Reason: Keep Vein Open Last Admin: 05/21/17 12:31 Dose: 2.5 ml Tramadol HCl (Ultram) 50 - 100 mg PO Q6H PRN PRN Reason: Pain Tramadol HCl (Ultram) 50 - 100 mg PO Q6H PRN PRN Reason: Pain Last Admin: 05/22/17 21:26 Dose: 100 mg - Exam Quality Assessment: Reports: Supplemental Oxygen General: Reports: Alert, Oriented, No Acute Distress HEENT: Reports: Pupils Equal, Pupils Reactive Neck: Reports: Supple, Trachea Midline Lungs: Reports: Normal Respiratory Effort, Decreased Breath Sounds, Crackles Cardiovascular: Reports: Regular Rate, Regular Rhythm GI/Abdominal Exam: Normal Bowel Sounds, Soft, No Distention Back Exam: Reports: Decreased Range of Motion Extremities: No Pedal Edema Skin: Reports: Warm, Dry, Intact Psy/Mental Status: Reports: Alert, Normal Affect, Normal Mood *Q Meaningful Use (DIS) - VTE *Q VTE Criteria *Q: - Stroke *Q Stroke Criteria *Q: - AMI *Q AMI Criteria *Q:
[2017-05-23] MEDS ORDERED: rOPINIRole 1 MG Tab PO SCH (20:00)
[2017-05-24] MEDS ORDERED: rOPINIRole 1 MG Tab PO SCH (08:00)
== END 2017-05-23 13:30 | disposition home or self-care (01) | DRG 190 ==
LOC: MW.ED 12:01 → MW.MS 13:19
PROVIDERS: ADMIT Internal Medicine; ATTEND Internal Medicine
DX: J44.0 Chronic obstructive pulmonary disease with (acute) lower respiratory infection (principal); J44.1 Chronic obstructive pulmonary disease with (acute) exacerbation; J20.9 Acute bronchitis, unspecified; R09.02 Hypoxemia; J96.01 Acute respiratory failure with hypoxia; N30.00 Acute cystitis without hematuria; I49.5 Sick sinus syndrome; I50.32 Chronic diastolic (congestive) heart failure; Z68.41 Body mass index [BMI] 40.0-44.9, adult; I25.10 Atherosclerotic heart disease of native coronary artery without angina pectoris; E11.9 Type 2 diabetes mellitus without complications; I10 Essential (primary) hypertension; Z95.0 Presence of cardiac pacemaker; E78.00 Pure hypercholesterolemia, unspecified; G47.33 Obstructive sleep apnea (adult) (pediatric); N40.0 Benign prostatic hyperplasia without lower urinary tract symptoms; F32.9 Major depressive disorder, single episode, unspecified; F17.210 Nicotine dependence, cigarettes, uncomplicated; E66.01 Morbid (severe) obesity due to excess calories; Z88.8 Allergy status to other drugs, medicaments and biological substances; Z85.118 Personal history of other malignant neoplasm of bronchus and lung; Z99.81 Dependence on supplemental oxygen; Z79.899 Other long term (current) drug therapy
CPT/HCPCS: 36415; 71020; 80053; 81001; 83605; 83880; 84484; 85025; 87086; 87186; 93005; 94664; 96361; 96374; 99285; J2930; J7040; 80048; 82962; 87088; 94640; 96375; 97161-GP; 97530-GP; 99284; A9270-GY; J0456; J0696; J1650; J1815-GY; J7050

== ENCOUNTER 2017-09-27 05:19 | Inpatient (IN) | payer MEDICARE, OTHER ==
--- NOTE | 2017-09-27 05:22 | EDM.PDOC ---
ED HPI GENERAL MEDICAL PROBLEM - General Stated Complaint: PAIN Time Seen by Provider: 09/27/17 05:21 Source of Information: Reports: Patient - History of Present Illness INITIAL COMMENTS - FREE TEXT/NARRATIVE: HISTORY AND PHYSICAL: History of present illness: [Patient awoke with right upper quadrant pain this morning, he relates this to turning over in bed however he is been dealing with this right upper quadrant pain off and on for 2-3 months with normal imaging on file, he has been admitted previously and and seen in [place] where I believe a HIDA scan was performed. Heart regular today presents via EMS with 10 out of 10 right upper quadrant pain radiating to back no fever nausea vomiting chills sweats Chronic history of diabetes CHF and COPD ] Review of systems: As per history of present illness and below otherwise all systems reviewed and negative. Past medical history: As per history of present illness and as reviewed below otherwise noncontributory. Surgical history: As per history of present illness and as reviewed below otherwise noncontributory. Social history: No reported history of drug or alcohol abuse. Family history: As per history of present illness and as reviewed below otherwise noncontributory. Physical exam: HEENT: Atraumatic, normocephalic, pupils reactive, negative for conjunctival pallor or scleral icterus, mucous membranes moist, throat clear, neck supple, nontender, trachea midline. Lungs: Clear to auscultation, breath sounds equal bilaterally, chest nontender. Heart: S1S2, regular, negative for clicks, rubs, or JVD. Abdomen: Obese distended, nontender. Negative for masses or hepatosplenomegaly. Negative for costovertebral tenderness. Pelvis: Stable nontender. Genitourinary: Deferred. Rectal: Deferred. Extremities: Atraumatic, negative for cords or calf pain. Neurovascular unremarkable. Neuro: Awake, alert, oriented. Cranial nerves II through XII unremarkable. Cerebellum unremarkable. Motor and sensory unremarkable throughout. Exam nonfocal. Diagnostics: []CBC CMP UA cardiac enzymes CT abdomen pelvis with contrast Ultrasound right upper quadrant Therapeutics: [Morphine 4 mg IV] Dilaudid 1 mg IV Impression: Cholelithiasis Acute cholecystitis Definitive disposition and diagnosis as appropriate pending reevaluation and review of above. Abdomen Pain Score (Numeric/FACES): 10 - Related Data Allergies Allergy/AdvReac Type Severity Reaction Status Date / Time ciprofloxacin [From Cipro] Allergy Rash Verified 09/27/17 05:29 ciprofloxacin HCl Allergy Rash Verified 09/27/17 05:29 [From Cipro] doxazosin Allergy Rash Verified 09/27/17 05:29 doxycycline Allergy Rash Verified 09/27/17 05:29 dutasteride [From Pepper] Allergy Rash Verified 09/27/17 05:29 tamsulosin HCl [From Pepper] Allergy Rash Verified 09/27/17 05:29 Home Meds: Home Meds Folic Acid 3 mg PO DAILY 01/05/14 [History] Aspirin [Adult Low Dose Aspirin EC] 81 mg PO DAILY 02/15/15 [History] Famotidine 20 mg PO DAILY 02/15/15 [History] Hydroxychloroquine [Plaquenil] 200 mg PO BID 02/01/16 [History] Ketoconazole [Nizoral 2% Crm] 1 applic TOP DAILY 02/01/16 [History] Multivitamin [Multivitamins] 1 cap PO DAILY 02/01/16 [History] metroNIDAZOLE/Skin Cleansr #23 [Ros[place] 0.75% Cream] 1 applic TOP BID 02/01/16 [ History] Budesonide/Formoterol [Symbicort 160-4.5 MCG] 2 puff INH BID 05/21/17 [History] Diltiazem IR [Cardizem] 90 mg PO BID 05/21/17 [History] Furosemide 40 mg PO DAILY 05/21/17 [History] atorvaSTATin [Lipitor] 40 mg PO BEDTIME 05/21/17 [History] Albuterol/Ipratropium [DuoNeb 3.0-0.5 MG/3 ML] 3 ml IH QID PRN 05/22/17 [History ] Ergocalciferol (Vitamin D2) [Vitamin D2] 2,000 unit PO DAILY 05/22/17 [History] Gabapentin Enacarbil [Horizant] 600 mg PO TID 05/22/17 [History] Sildenafil Citrate [Sildenafil] 25 mg PO ASDIRECTED PRN 05/22/17 [History] metFORMIN HCl [Metformin HCl ER] 500 mg PO DAILY 05/22/17 [History] Past Medical History HEENT History: Reports: Hard of Hearing Cardiovascular History: Reports: CAD, High Cholesterol, Hypertension, Pacemaker , SOB on Exertion Respiratory History: Reports: COPD (oxygen dependent), Sleep Apnea, SOB, Other ( See Below) Other Respiratory History: lung ca Gastrointestinal History: Reports: Cholelithiasis (diagnosed). Denies: GERD Genitourinary History: Reports: BPH, Chronic Renal Insuffiency Other Genitourinary History: BPH Musculoskeletal History: Reports: RA Other Musculoskeletal History: restless legs syndrome Neurological History: Reports: None Psychiatric History: Reports: Depression Endocrine/Metabolic History: Reports: Diabetes, Type II, Obesity/BMI 30+. Denies: Hypothyroidism Hematologic History: Reports: None Oncologic (Cancer) History: Reports: Lung - Infectious Disease History Infectious Disease History: Reports: None - Past Surgical History HEENT Surgical History: Reports: None Cardiovascular Surgical History: Reports: Pacer Social & Family History - Family History Family Medical History: Noncontributory - Tobacco Use Smoking Status *Q: Former Smoker Years of Tobacco use: 54 Packs/Tins Daily: 0.5 Used Tobacco, but Quit: Yes Month Tobacco Last Used: 1 month ago Second Hand Smoke Exposure: No - Caffeine Use Caffeine Use: Reports: Coffee - Alcohol Use Days Per Week of Alcohol Use: 3 Number of Drinks Per Day: 2 Total Drinks Per Week: 6 - Recreational Drug Use Recreational Drug Use: No - Living Situation & Occupation Living situation: Reports: Alone Occupation: Retired ED ROS GENERAL - Review of Systems Review Of Systems: ROS reveals no pertinent complaints other than HPI. ED EXAM, GENERAL - Physical Exam Exam: See Below Course - Vital Signs Last Recorded V/S: Last Vital Signs Temp 97.5 F 09/27/17 05:29 Pulse 97 09/27/17 07:30 Resp 24 H 09/27/17 07:30 BP 141/69 H 09/27/17 07:30 Pulse Ox 90 L 09/27/17 07:30 - Orders/Labs/Meds Orders: Active Orders 24 hr Category Date Time Status EKG Documentation Completion [RC] STAT Care 09/27/17 05:38 Active Abdomen Ltd [US] Stat Exams 09/27/17 07:49 Taken Abdomen Pelvis w Cont [CT] Stat Exams 09/27/17 05:22 Taken Chest 1V Frontal [CR] Stat Exams 09/27/17 05:38 Taken UA W/MICROSCOPIC [URIN] Stat Lab 09/27/17 05:20 Uncollected Labs: Laboratory Tests 01/14/18 01/14/18 Range/Units 05:20 05:20 WBC 9.09 (4.0-11.0) K/uL RBC 4.61 (4.50-5.90) M/uL Hgb 13.1 (13.0-17.0) g/dL Hct 41.7 (38.0-50.0) % MCV 90.5 (80.0-98.0) fL MCH 28.4 (27.0-32.0) pg MCHC 31.4 (31.0-37.0) g/dL RDW Std Deviation 51.2 (28.0-62.0) fl RDW Coeff of Kelsea 15 (11.0-15.0) % Plt Count 270 (150-400) K/uL MPV 8.60 (7.40-12.00) fL Neut % (Auto) 60.7 (48.0-80.0) % Lymph % (Auto) 26.8 (16.0-40.0) % [place] % (Auto) 10.1 (0.0-15.0) % Eos % (Auto) 2.2 (0.0-7.0) % Baso % (Auto) 0.2 (0.0-1.5) % Neut # (Auto) 5.5 (1.4-5.7) K/uL Lymph # (Auto) 2.4 (0.6-2.4) K/uL [place] # (Auto) 0.9 H (0.0-0.8) K/uL Eos # (Auto) 0.2 (0.0-0.7) K/uL Baso # (Auto) 0.0 (0.0-0.1) K/uL Nucleated RBC % 0.0 /100WBC Nucleated RBCs # 0 K/uL Sodium 140 (136-146) mmol/L Potassium 4.6 (3.5-5.1) mmol/L Chloride 103 (98-110) mmol/L Carbon Dioxide 26 (21-31) mmol/L BUN 12 (6.0-23.0) mg/dL Creatinine 0.8 (0.6-1.5) mg/dL Est Cr Clr Drug Dosing 73.10 mL/min Estimated GFR (MDRD) > 60.0 ml/min Glucose 153 H (60-110) mg/dL Calcium 9.3 (8.8-10.8) mg/dL Total Bilirubin 0.4 (0.1-1.5) mg/dL AST 16 (5-40) IU/L ALT 17 (8-54) IU/L Alkaline Phosphatase 107 (40-150) Creatine Kinase 128 (9-236) IU/L CK-MB (CK-2) 1.3 (0-6.6) ng/ml Troponin I < 0.10 (0.0-0.29) NG/ML Total Protein 7.2 (6.0-8.0) g/dL Albumin 4.0 (3.4-4.8) g/dL Globulin 3.2 (2.0-3.5) g/dL Albumin/Globulin Ratio 1.3 (1.3-2.8) Amylase 44 (10-90) U/L Lipase 20 (7-80) U/L Meds: Medications Discontinued Medications Generic Name Dose Route Start Last Admin Trade Name Freq PRN Reason Stop Dose Admin Hydromorphone HCl 1 mg 09/27/17 07:25 09/27/17 07:30 Dilaudid IVPUSH 09/27/17 07:26 1 mg ONETIME ONE Administration Hydromorphone HCl 1 mg 09/27/17 08:13 09/27/17 08:21 Dilaudid IVPUSH 09/27/17 08:14 1 mg ONETIME ONE Administration Sodium Chloride 1,000 mls @ 125 mls/hr 09/27/17 05:30 09/27/17 05:41 Normal Saline IV 125 mls/hr STAT AXEL Administration Iopamidol 100 ml 09/27/17 06:37 09/27/17 06:38 Isovue-370 (76%) IVPUSH 09/27/17 06:38 100 ml ONETIME STA Administration Morphine Sulfate 4 mg 09/27/17 05:37 09/27/17 05:43 Morphine IVPUSH 09/27/17 05:38 4 mg ONETIME ONE Administration Ondansetron HCl 8 mg 09/27/17 05:23 09/27/17 05:39 Zofran IVPUSH 09/27/17 05:24 8 mg ONETIME ONE Administration Potassium Chloride 20 meq 09/27/17 07:54 09/27/17 08:04 Klor-Con M20 PO 09/27/17 07:55 20 meq ONETIME ONE Administration Departure - Departure Time of Disposition: 09:28 Disposition: Refer to Observation Condition: Fair Clinical Impression: Pain, Acute cholecystitis - Discharge Information Referrals: PCP,None [Primary Care Provider] - - My Orders Last 24 Hours: My Active Orders 09/27/17 05:20 UA W/MICROSCOPIC [URIN] Stat 09/27/17 05:22 Abdomen Pelvis w Cont [CT] Stat 09/27/17 05:38 EKG Documentation Completion [RC] STAT Chest 1V Frontal [CR] Stat 09/27/17 07:49 Abdomen Ltd [US] Stat - Assessment/Plan Last 24 Hours: My Active Orders 09/27/17 05:20 UA W/MICROSCOPIC [URIN] Stat 09/27/17 05:22 Abdomen Pelvis w Cont [CT] Stat 09/27/17 05:38 EKG Documentation Completion [RC] STAT Chest 1V Frontal [CR] Stat 09/27/17 07:49 Abdomen Ltd [US] Stat
[2017-09-27] MEDS ORDERED: Ondansetron 4 MG/2 ML SDV IVPUSH ONE (05:23)
[2017-09-27] MEDS ORDERED: Sodium Chloride 0.9% 1,000 ML IV SCH ×2 (05:30→11:30)
[2017-09-27] MEDS ORDERED: Morphine 4 MG/ML Syringe IVPUSH ONE (05:37)
[2017-09-27 05:54] LABS: CHLORIDE,CL 103 mmol/L (98-110); SODIUM,NA 140 mmol/L (136-146)
[2017-09-27] MEDS ORDERED: Iopamidol 755 Mg/ML 100 ML Bottle IVPUSH STA (06:37)
[2017-09-27] MEDS ORDERED: HYDROmorphone 2 MG/ML Syringe IVPUSH ONE ×2 (07:25→08:13)
[2017-09-27] MEDS ORDERED: Potassium Chloride 20 MEQ Tab.ER PO ONE (07:54)
[2017-09-27] MEDS ORDERED: HYDROmorphone 1 MG/ML Syringe IVPUSH PRN ×2 (10:14→11:18)
[2017-09-27] MEDS ORDERED: diphenhydrAMINE 50 MG/ML SDV IVPUSH PRN (11:18)
[2017-09-27] MEDS ORDERED: Ondansetron 4 MG/2 ML SDV IVPUSH PRN (11:18)
[2017-09-27] MEDS ORDERED: Piperacillin/Tazobactam 3.375 GM in Sodium Chloride 0.9% 50 ML IV ONE (11:22)
--- NOTE | 2017-09-27 11:29 | PCM.HP ---
H&P History of Present Illness - General Date of Service: 09/27/17 Admit Problem/Dx: Admission Diagnosis/Problem Admission Diagnosis/Problem Acute cholecystitis Source of Information: Patient History Limitations: Reports: No Limitations - History of Present Illness Initial Comments - Free Text/Narative: Patient is a 72 yo old male with a past medical history significant for severe COPD (last FEV1 on 03/2017 was 29%), obesity, CHF, sick sinus syndrome with a pacemaker, BPH, type II diabetes, osteoarthritis and a history of lung cancer ( now in remission) who presents with RUQ pain. He awoke from sleep this morning drank some tea and developed severe RUQ pain. He has had dull aching in her RUQ for several months. He was treated for pancreatitis in June in [place]. He says that someone told him he may have gallstones, but was then told he didnt. I do not have records of this encounter. He has never had pain like this before. Nothing improved the pain so he called an ambulance and was brought into our ER. His WBC, LFT, amylase and lipase were all within normal limits. A CT of the abdomen showed the following IMPRESSION: 1. No acute disease in abdomen or pelvis. 2. Moderate amount of ill-defined and nodular opacity in the right lower lobe is stable and could be post inflammatory or related to some component of active disease. Followup chest imaging recommended to reassess this. Not mentioned above is a small associated right pleural effusion which is slightly decreased in size. 3. Low-density lesion left mid-kidney posteriorly may be a complex cyst but has density greater than a simple cyst and can be correlated to ultrasound. This was present previously. 4. Diffuse stranding in the subcutaneous tissues of the anterior abdominal and anterior pelvic wall either related to edema or inflammation such as cellulitis and was present previously. 5. Small stone in the gallbladder neck is new. If there is concern for acute gallbladder pathology consider correlation with gallbladder ultrasound. 6. Prostate enlarged. Other findings as above. An US was performed that showed the following; FINDINGS: Liver: Normal in size and echotexture. No masses. No intrahepatic biliary dilatation. Gallbladder: At least 1 dependent gallbladder stone is present. There is gallbladder wall thickening measuring 4-5 mm. Positive Bauman`s sign was elicited. Common bile duct: 4 mm. Pancreas: Not well visualized secondary to bowel gas. Right kidney: Normal in size. Normal echotexture and cortex. No masses, stones, or hydronephrosis. There is a 4 cm simple appearing cyst. IMPRESSION: Cholelithiasis with gallbladder wall thickening suggesting acute cholecystitis. He deneis fevers, chills, nausea or vomiting. He was given 1mg of dilaudid and 4mg os MS in the ED with no improvement in his pain which he states is 10/10. Abdomen Pain Score (Numeric/FACES): 10 - Related Data Allergies/Adverse Reactions: Allergies Allergy/AdvReac Type Severity Reaction Status Date / Time ciprofloxacin [From Cipro] Allergy Rash Verified 09/27/17 05:29 ciprofloxacin HCl Allergy Rash Verified 09/27/17 05:29 [From Cipro] doxazosin Allergy Rash Verified 09/27/17 05:29 doxycycline Allergy Rash Verified 09/27/17 05:29 dutasteride [From Pepper] Allergy Rash Verified 09/27/17 05:29 tamsulosin HCl [From Pepper] Allergy Rash Verified 09/27/17 05:29 Home Medications: Home Meds Folic Acid 3 mg PO DAILY 01/05/14 [History] Aspirin [Adult Low Dose Aspirin EC] 81 mg PO DAILY 02/15/15 [History] Famotidine 20 mg PO DAILY 02/15/15 [History] Hydroxychloroquine [Plaquenil] 200 mg PO BID 02/01/16 [History] Ketoconazole [Nizoral 2% Crm] 1 applic TOP DAILY 02/01/16 [History] Multivitamin [Multivitamins] 1 cap PO DAILY 02/01/16 [History] metroNIDAZOLE/Skin Cleansr #23 [[place] 0.75% Cream] 1 applic TOP BID 02/01/16 [ History] Budesonide/Formoterol [Symbicort 160-4.5 MCG] 2 puff INH BID 05/21/17 [History] Diltiazem IR [Cardizem] 90 mg PO BID 05/21/17 [History] Furosemide 40 mg PO DAILY 05/21/17 [History] atorvaSTATin [Lipitor] 40 mg PO BEDTIME 05/21/17 [History] Albuterol/Ipratropium [DuoNeb 3.0-0.5 MG/3 ML] 3 ml IH QID PRN 05/22/17 [History ] Ergocalciferol (Vitamin D2) [Vitamin D2] 2,000 unit PO DAILY 05/22/17 [History] Gabapentin Enacarbil [Horizant] 600 mg PO TID 05/22/17 [History] Sildenafil Citrate [Sildenafil] 25 mg PO ASDIRECTED PRN 05/22/17 [History] metFORMIN HCl [Metformin HCl ER] 500 mg PO DAILY 05/22/17 [History] Past Medical History HEENT History: Reports: Hard of Hearing Cardiovascular History: Reports: CAD, High Cholesterol, Hypertension, Pacemaker , SOB on Exertion Respiratory History: Reports: COPD, Sleep Apnea, SOB, Other (See Below) Other Respiratory History: lung ca Gastrointestinal History: Reports: Cholelithiasis, Pancreatitis Genitourinary History: Reports: BPH, Chronic Renal Insuffiency Other Genitourinary History: BPH Musculoskeletal History: Reports: Arthritis, RA Other Musculoskeletal History: restless legs syndrome Neurological History: Reports: None Psychiatric History: Reports: Depression Endocrine/Metabolic History: Reports: Diabetes, Type II, Obesity/BMI 30+ Hematologic History: Reports: None Immunologic History: Reports: None Oncologic (Cancer) History: Reports: Lung Dermatologic History: Reports: None - Infectious Disease History Infectious Disease History: Reports: None - Past Surgical History HEENT Surgical History: Reports: None Cardiovascular Surgical History: Reports: Pacer Musculoskeletal Surgical History: Reports: Hip Replacement (Performed Aug 2016) Social & Family History - Family History Family Medical History: Noncontributory - Tobacco Use Smoking Status *Q: Former Smoker Years of Tobacco use: 54 Packs/Tins Daily: 0.5 Used Tobacco, but Quit: Yes Month Tobacco Last Used: 2007 Tobacco Use Comment: has not smoked for ten years Second Hand Smoke Exposure: No - Caffeine Use Caffeine Use: Reports: Tea - Alcohol Use Days Per Week of Alcohol Use: 7 Number of Drinks Per Day: 1 Total Drinks Per Week: 7 Date of Last Drink: 09/26/17 Time of Last Drink: 20:00 - Recreational Drug Use Recreational Drug Use: No - Living Situation & Occupation Living situation: Reports: Alone Occupation: Retired H&P Review of Systems - Review of Systems: Review Of Systems: ROS reveals no pertinent complaints other than HPI. Exam - Exam Exam: See Below - Vital Signs Vital Signs: Last Vital Signs Temp 36.3 C 09/27/17 10:11 Pulse 100 09/27/17 10:11 Resp 24 H 09/27/17 10:11 BP 166/115 H 09/27/17 10:11 Pulse Ox 82 L 09/27/17 10:11 Weight: 134.5 kg - Exam Quality Assessment: Supplemental Oxygen General: Alert, Oriented, Cooperative HEENT: Conjunctiva Clear, Mucosa Moist & English, Posterior Pharynx Clear Neck: Supple Lungs: Decreased Breath Sounds. No: Wheezing Cardiovascular: Regular Rate, Regular Rhythm GI/Abdominal Exam: Soft, Other (Obese abdomen, with positive murphys sign ) Back Exam: Normal Inspection Extremities: Pedal Edema, Limited Range of Motion Skin: Warm, Dry, Intact - Patient Data Lab Results Last 24 hrs: Laboratory Results - last 24 hr 09/27/17 Range/Units 09:45 Urine Color YELLOW Urine Appearance CLEAR Urine pH 5.5 (5.0-8.0) Ur Specific [place] >= 1.030 (1.001-1.035) Urine Protein NEGATIVE (NEGATIVE) mg/dL Urine Glucose (UA) NEGATIVE (NEGATIVE) mg/dL Urine Ketones NEGATIVE (NEGATIVE) mg/dL Urine Occult Blood NEGATIVE (NEGATIVE) Urine Nitrite NEGATIVE (NEGATIVE) Urine Bilirubin NEGATIVE (NEGATIVE) Urine Urobilinogen 0.2 (<2.0) EU/dL Ur Leukocyte Esterase NEGATIVE (NEGATIVE) Urine RBC NONE SEEN (0-2/HPF) Urine WBC 0-2 (0-5/HPF) Ur Squamous Epith Cells NOT SEEN Urine Bacteria NOT SEEN (NEGATIVE) Result Diagrams: 09/27/17 05:20 09/27/17 05:20 *Q Meaningful Use (ADM) - VTE *Q VTE Criteria *Q: - Stroke *Q Stroke Criteria *Q: - AMI *Q AMI Criteria *Q: - Problem List (1) Acute cholecystitis SNOMED Code(s): 03316226 ICD Code: K81.0 - ACUTE CHOLECYSTITIS Status: Acute Current Visit: Yes Problem List Initiated/Reviewed/Updated: Yes Orders Last 24hrs: Active Orders 24 hr Category Date Time Status Patient Status [ADT] Routine ADT 09/27/17 11:18 Ordered Intake and Output [RC] QSHIFT Care 09/27/17 11:20 Ordered Notify Provider Vital Signs [RC] PRN Care 09/27/17 11:20 Ordered Oxygen Therapy [RC] PRN Care 09/27/17 11:18 Ordered RT Incentive Spirometry [RC] ASDIRECTED Care 09/27/17 11:18 Ordered Up ad Cathy [RC] ASDIRECTED Care 09/27/17 11:18 Ordered Vital Signs [RC] PER UNIT ROUTINE Care 09/27/17 11:18 Ordered Nothing Per Oral Diet [DIET] Diet 09/27/17 Breakfast Ordered HYDROmorphone [Dilaudid] Med 09/27/17 11:18 Ordered 0.5 mg IVPUSH Q1H PRN HYDROmorphone [Dilaudid] Med 09/27/17 10:14 Active 1 mg IVPUSH Q2H PRN Ondansetron [Zofran] Med 09/27/17 11:18 Ordered 4 mg IVPUSH Q6H PRN Piperacillin/Tazobactam [Piperacil-Tazobact] 3.375 gm Med 09/27/17 11:22 Ordered Sodium Chloride 0.9% [Normal Saline] 50 ml IV ONETIME Sodium Chloride 0.9% [Normal Saline] 1,000 ml Med 09/27/17 11:30 Ordered IV .BOLUS diphenhydrAMINE [Benadryl] Med 09/27/17 11:18 Ordered 25 mg IVPUSH Q4H PRN Resuscitation Status Routine Resus Stat 09/27/17 11:18 Ordered Medication Orders Diphenhydramine HCl (Benadryl) 25 mg IVPUSH Q4H PRN PRN Reason: Itching Hydromorphone HCl (Dilaudid) 1 mg IVPUSH Q2H PRN PRN Reason: Pain Last Admin: 09/27/17 10:51 Dose: 1 mg Hydromorphone HCl (Dilaudid) 0.5 mg IVPUSH Q1H PRN PRN Reason: Pain (severe 7-10) Sodium Chloride (Normal Saline) 1,000 mls @ 100 mls/hr IV .BOLUS AXEL Ondansetron HCl (Zofran) 4 mg IVPUSH Q6H PRN PRN Reason: Nausea/Vomiting Assessment/Plan Comment:: The patients imaging and physical exam support that he has acute cholecystitis. Given his multiple medical co-morbidities, he will need a higher level of care. I have called [facility] ER in [facility] who was accepted the patient. I discussed his case with the oncology rep surgeon Dr. Marcelina Melendrez as well.
[2017-09-27 12:02] VITALS: BP 156/61
--- NOTE | 2017-09-28 19:08 | CT ---
EXAM DATE: 09/27/17 PATIENT'S AGE: 72 Patient: SENG LAWRENCE Facility: [place], [place] Site . Site : 1945 Study: CT Abdomen/Pelvis [id number]/14/2018 7:23:07 AM Ordering Physician: Carley Moreno Final Report: INDICATION: Pain. TECHNIQUE: CT abdomen and pelvis performed after IV injection of contrast. COMPARISON: CT 05/27/2017. FINDINGS: Left OPAL. Right pacemaker. These are stable. Moderate atherosclerotic vascular calcifications. Ununited partially visualized right mid to lower lateral rib fracture was not included on the prior study. Moderate emphysematous changes in the mid and lower lungs. Atelectasis and scarring in the mid and lower lungs. Denser area of ill-defined opacity in the right lower lobe was present previously also and could be related to postinflammatory opacity but is more nodular and prominent. Cannot exclude some component of active disease in this region. This is seen on the video producer view and can be followed with chest imaging. Multiple small to intermediate sized hepatic cysts. The stone in the gallbladder neck not definitely seen previously. If there is concern for acute gallbladder pathology gallbladder ultrasound would better evaluate the gallbladder. Renal cystic lesions and renal low-density lesions which are not simple cysts are again noted with 1 of these arising in the left midkidney posteriorly and having internal density greater than simple fluid. This could be correlated to renal ultrasound. Benign chronic fat-density change in the wall of the stomach. Small lymph nodes bilaterally in the pelvis. Prostate is moderately enlarged. Moderate increased stranding in the subcutaneous tissues of mid and lower anterior abdominal and diffusely in the anterior pelvic wall with some mild skin thickening was present previously and could be related to subcutaneous edema or inflammation such as cellulitis. Clinical correlation recommended. Colonic diverticulosis. Remainder negative. IMPRESSION: 1. No acute disease in abdomen or pelvis. 2. Moderate amount of ill-defined and nodular opacity in the right lower lobe is stable and could be post inflammatory or related to some component of active disease. Followup chest imaging recommended to reassess this. Not mentioned above is a small associated right pleural effusion which is slightly decreased in size. 3. Low-density lesion left midkidney posteriorly may be a complex cyst but has density greater than a simple cyst and can be correlated to ultrasound. This was present previously. 4. Diffuse stranding in the subcutaneous tissues of the anterior abdominal and anterior pelvic wall either related to edema or inflammation such as cellulitis and was present previously. 5. Small stone in the gallbladder neck is new. If there is concern for acute gallbladder pathology consider correlation with gallbladder ultrasound. 6. Prostate enlarged. Other findings as above. Please note that all CT scans at this facility use dose modulation, iterative reconstruction, and/or weight-based dosing when appropriate to reduce radiation dose to as low as reasonably achievable. Dictated by Oscar Connors MD @ Sep 27 2017 7:35AM (Electronic Signature) Report Signed by Proxy. MTDD
--- NOTE | 2017-09-28 19:08 | CR ---
EXAM DATE: 09/27/17 PATIENT'S AGE: 72 Patient: SENG LAWRENCE Facility: [place], [place] Site . Site : 1945 Study: XRay Chest CXR1V [id number]/14/2018 7:32:47 AM Ordering Physician: Carley Moreno Final Report: INDICATION: Shortness of breath. Chest pain. Technique : AP portable chest x-ray COMPARISON: 05/21/2017. FINDINGS: Persistent ill-defined 3-4 cm nodular opacity in the right upper lobe is overall fairly stable. Given that this is persistent, neoplasm such as a primary lung neoplasm should be excluded. Definitive workup of this lesion is recommended to exclude this etiology. Left-sided pacemaker. Heart is mildly generous. Moderate aortic calcification. Moderate amount of ill-defined opacity in the right mid and lower lungs stable in consistent combination of infiltrate and atelectasis and scarring. This could be postinflammatory or related to an evolving inflammatory process. Cannot exclude small right pleural effusion. Emphysema. Mild increased pulmonary vascularity in the upper lungs consistent with mild pulmonary venous congestion. Chest otherwise stable. Dictated by Oscar Connors MD @ Sep 27 2017 7:37AM (Electronic Signature) Report Signed by Proxy. TIANNA
--- NOTE | 2017-09-28 19:14 | US ---
EXAM DATE: 09/27/17 PATIENT'S AGE: 72 Patient: SENG LAWRENCE Facility: [place], [place] Site . Site : 1945 Study: US Abdomen [id number]/14/2018 9:04:34 AM Ordering Physician: Carley Moreno Final Report: INDICATION: Abdominal pain TECHNIQUE: Ultrasound abdomen limited. Sonographic images of the right upper quadrant were obtained using young-scale and color Doppler images. COMPARISON: CT abdomen pelvis September 27, 2017 FINDINGS: Liver: Normal in size and echotexture. No masses. No intrahepatic biliary dilatation. Gallbladder: At least 1 dependent gallbladder stone is present. There is gallbladder wall thickening measuring 4-5 mm. Positive Bauman`s sign was elicited. Common bile duct: 4 mm. Pancreas: Not well visualized secondary to bowel gas. Right kidney: Normal in size. Normal echotexture and cortex. No masses, stones, or hydronephrosis. There is a 4 cm simple appearing cyst. IMPRESSION: Cholelithiasis with gallbladder wall thickening suggesting acute cholecystitis. Dictated by Neftali Lorenz MD @ 09/27/2017 9:11:32 AM Dictated by: Neftali Lorenz MD @ 09/27/2017 09:11:37 (Electronic Signature) Report Signed by Proxy. TIANNA
== END 2017-09-27 12:30 | disposition still patient (30) | DRG 445 ==
LOC: MW.ED 05:19 → MW.MS 09:28 → OBSVTOIN 11:18
PROVIDERS: ADMIT Internal Medicine; ATTEND Internal Medicine
DX: K80.00 Calculus of gallbladder with acute cholecystitis without obstruction (principal); I25.10 Atherosclerotic heart disease of native coronary artery without angina pectoris; I12.9 Hypertensive chronic kidney disease with stage 1 through stage 4 chronic kidney disease, or unspecified chronic kidney disease; I13.0 Hypertensive heart and chronic kidney disease with heart failure and stage 1 through stage 4 chronic kidney disease, or unspecified chronic kidney disease; J44.9 Chronic obstructive pulmonary disease, unspecified; E66.9 Obesity, unspecified; E11.9 Type 2 diabetes mellitus without complications; M19.90 Unspecified osteoarthritis, unspecified site; I50.9 Heart failure, unspecified; N18.9 Chronic kidney disease, unspecified; E11.22 Type 2 diabetes mellitus with diabetic chronic kidney disease; Z79.84 Long term (current) use of oral hypoglycemic drugs; Z88.8 Allergy status to other drugs, medicaments and biological substances; E78.00 Pure hypercholesterolemia, unspecified; Z95.0 Presence of cardiac pacemaker; N40.0 Benign prostatic hyperplasia without lower urinary tract symptoms; M06.9 Rheumatoid arthritis, unspecified; G25.81 Restless legs syndrome; G47.30 Sleep apnea, unspecified; F32.9 Major depressive disorder, single episode, unspecified; Z85.118 Personal history of other malignant neoplasm of bronchus and lung; Z87.891 Personal history of nicotine dependence; Z79.82 Long term (current) use of aspirin; Z79.899 Other long term (current) drug therapy
CPT/HCPCS: 36415; 71045; 74177; 76705; 80053; 81001; 82150; 82550; 82553; 83690; 84484; 85025; 93005; 96361; 96374; 96375; 96376; 99285; A9270; J1170 ×3; J2270; J2405; J7040; Q9967; 99284; J2543; J7050